=== PATIENT | male | born 1970 | race Caucasian/White ===

== ENCOUNTER 2017-01-24 20:20 | Inpatient (IN) ==
[2017-01-24] MEDS ORDERED: Ipratropium/Albuterol Neb 3 ML IH ONE ×2 (20:47→21:57)
[2017-01-24 21:14] LABS: Basophils % 0.2 %; Eosinophils % 0.1 %; Hematocrit 40.1 % (37.5-50.1); Hemoglobin 12.1 g/dL (12.9-16.9); Immature Granulocytes % 0.6 % (0-4); Lymphocytes # 1.3 K/mcL (0.6-4.6); Mean Corpuscular HGB Conc 30.2 g/dL (31.6-35.5); Mean Corpuscular Hemoglobin 26.2 pg (28.0-33.3); Mean Platelet Volume 10.7 fL (9.4-12.4); Monocytes # 0.6 K/mcL (0.0-1.3); Neutrophils # 12.6 K/mcL (1.6-8.9); Platelet Count 258 K/mcL (140-400); Red Blood Count 4.61 M/mcL (4.19-5.50); Red Cell Distribution Width 13.7 % (11.5-14.5); Segmented Neutrophils % 86.1 %
--- NOTE | 2017-01-24 21:18 | Emergency Department Note ---
Disposition Clinical Impression: Dyspnea, Acute and chronic respiratory failure, Hypercarbia Disposition: Admitted As Inpatient Condition: Fair Referrals: Severiano Thomas MD [Primary Care Provider] - Forms: ED Satisfaction Letter Time of Disposition: 22:44 General Adult HPI - General Chief complaint: ED Shortness of Breath/Dyspnea Stated complaint: states chest congestion,sob Time Seen by Provider: 01/24/17 20:31 Source: patient Limitations: no limitations Nursing Notes Reviewed: Yes Vital Signs Reviewed: Yes - History of Present Illness HPI Narrative: Mr. Padron, 38-year-old male, presents from urgent care for dilation of dyspnea. Onset has been progressive throughout the day. Patient has chronic respiratory failure requiring 3 L oxygen nasal cannula at baseline while sedentary and 6 L with movement. He does have home nebulizers which she did not use today. He is followed by his quantometer operator, Dr. Ribeiro, he saw 2 days ago and was diagnosed with either bronchitis or Tita cart pneumonia; unknown to the patient. He was provided an antibiotic as well as a steroid. Additionally, patient has sleep apnea with BiPAP for which he is not compliant. ROS: Positive: Dyspnea, wheeze Negative: Chest pains, palpitations, nausea, vomiting, diaphoresis, unusual cough, fever, chills, myalgias, constipation, diarrhea Pain Scale: 4 - Related Data Home Medications Medication Instructions Recorded Confirmed Albuterol Neb IH QID 04/19/15 Budesonide/Formoterol 160/4.5 IH DAILY 04/19/15 [Symbicort 160/4.5] Citalopram [CeleXA] 20 mg PO DAILY 04/19/15 04/19/15 Gabapentin 600 mg PO TID 04/19/15 04/19/15 Lisinopril [Zestril] 10 mg PO DAILY 04/19/15 04/19/15 Metformin 1,000 mg PO DAILY 04/19/15 04/19/15 Montelukast [Singulair] 10 mg PO DAILY 04/19/15 04/19/15 [place] 10-325 mg 10 - 325 mg PO QID 04/19/15 04/19/15 Previous Rx's Medication Instructions Recorded Acetaminophen [Tylenol] 325 mg PO Q6HR PRN #10 tablet 08/10/15 Albuterol Neb [Proventil Neb] 2.5 mg IH QID 2 Days inhsol 08/10/15 Albuterol Sulfate [Albuterol 2 puff IH QID 2 Days inhaler 08/10/15 Inhaler] Doxycycline 100 mg PO BID 7 Days capsule 08/10/15 predniSONE [PredniSONE] 5 mg PO DAILY 6 Days tablet 08/10/15 Allergies Allergy/AdvReac Type Severity Reaction Status Date / Time Latex, Natural Rubber Allergy Hives Verified 01/24/17 18:52 guaifenesin [From Robitussin] AdvReac Hives Verified 01/24/17 18:52 All systems ED: reviewed and negative except as stated. Review of Systems: As Per HPI Past Medical History - Past Medical History Attestation: Yes The following information was validated with the patient. Medical history: Reports: COPD, diabetes, hypertension Psychiatric history: Reports: anxiety, depression - Social History Smoking Status: Never smoker Smokeless Tobacco Status: No Alcohol use: Reports: none Drug use: Reports: none Physical Exam Vital Signs Reviewed General: Patient is alert, oriented, and in no acute distress. HEENT: No facial asymmetry. Head is normocephalic and atraumatic. PERRLA, EOMI. because of moist. Trachea midline. Cardiovascular: Heart regular rate and rhythm without clicks, rubs, gallops, or murmurs. No JVD. PMI nondisplaced. Respiratory: Symmetric chest rise with good respiratory effort. Prolonged respiratory phase. Bilateral breath sounds are diminished with scattered wheeze ; no crackles or rhonchi. Abdomen: Bees. Bowel sounds present normoactive x-4 quadrants. Abdomen is soft , nondistended, and nontender. Musculoskeletal: Spontaneously moving all extremities. Neuro: Alert and oriented 4. Skin: Warm, dry, intact. Psych: Patient's affect is appropriate for situation. - General Limitations: no limitations General appearance: alert, in no apparent distress Course Course Narrative: Patient is stable and oxygenating well on his baseline 3 L nasal cannula. Provide breathing treatments as well as chest x-ray, EKG, and laboratory workup. Subjectively, patient feels as though he is breathing better after the nebulizer. Attempted to find the patient in eCW to determine his diagnosis from this past . He was not found by patient look up. Patient CO2 on VBG is elevated at 81. He is mentating at his baseline per his at bedside. Clinically, he is not appears to be altered. Patient does have BiPAP at home. I discussed in detail the reason BiPAP is important both to maintain his airway from a pressure and soft tissue perspective as well as to support his lungs from a pulmonary cardiac perspective. We discussed the relationship between instrument repair technician heart attacks and REM sleep versus sleep apnea. Patient apparently does not wear his BiPAP because he does not like the sounds of air leaking beyond the mask. EKG is unremarkable. Troponin is within normal limits. Chest x-ray unremarkable. Because patient has a known history noncompliance, he is hypercarbic, and has acute on chronic respiratory failure, will admit to hospital service for continued management. Patient and are agreeable to this plan of care. I discussed the patient with the admitting hospitalist, Dr. Hills, who agrees to accept the patient for continued evaluation and management. Chest X-Ray 01/24/17 20:47 IMPRESSION: No acute abnormality D/ / Ellis Castro / Ellis Castro Interpreting Provider: Ellis Castro Vital Signs Temperature 98.9 F 01/24/17 20:22 Pulse Rate 102 01/24/17 20:22 Respiratory Rate 22 01/24/17 20:22 Blood Pressure 159/89 01/24/17 20:22 O2 Sat by Pulse Oximetry 95 01/24/17 20:22 Temperature 98.9 F 01/24/17 20:31 Pulse Rate 88 01/24/17 22:00 Respiratory Rate 18 01/24/17 22:08 Blood Pressure 133/77 01/24/17 22:00 O2 Sat by Pulse Oximetry 94 01/24/17 22:08 Oxygen Delivery Oxygen Delivery Nasal Cannula Medical Decision Making - Lab Data Result diagrams: 01/24/17 21:06 01/24/17 21:06 Lab Results 01/24/17 01/24/17 01/24/17 Range/Units 21:06 21:06 21:06 WBC 14.6 H (4.3-11.1) K/mcL RBC 4.61 (4.19-5.50) M/mcL Hgb 12.1 L (12.9-16.9) g/dL Hct 40.1 (37.5-50.1) % MCV 87.0 (83.0-100.0) fL MCH 26.2 L (28.0-33.3) pg MCHC 30.2 L (31.6-35.5) g/dL RDW 13.7 (11.5-14.5) % Plt Count 258 (140-400) K/mcL MPV 10.7 (9.4-12.4) fL Immature Gran % 0.6 (0-4) % Seg Neutrophils % 86.1 % Lymphocytes % 9.0 % Monocytes % 4.0 % Eosinophils % 0.1 % Basophils % 0.2 % Neutrophils # 12.6 H (1.6-8.9) K/mcL Lymphocytes # 1.3 (0.6-4.6) K/mcL Monocytes # 0.6 (0.0-1.3) K/mcL Eosinophils # 0.0 (0.0-0.6) K/mcL Basophils # 0.0 (0.0-0.2) K/mcL VBG pH (7.32-7.42) pH Units VBG pCO2 (41-51) mmHg VBG pO2 (25-50) mmHg VBG HCO3 (21-27) mEq/L Sodium 140 (136-145) mEq/L Potassium 5.0 H (3.5-4.5) mEq/L Chloride 92 L (98-109) mEq/L Carbon Dioxide 38 H (19-29) mEq/L BUN 18 (8-26) mg/dL Creatinine 0.75 (0.72-1.25) mg/dL Est GFR ( Amer) > 60 (> 60) Est GFR (Non-Af Amer) > 60 (> 60) BUN/Creatinine Ratio 24 (6-26) Glucose 190 H (70-99) mg/dL Calculated Osmolality 297 (280-300) Calcium 9.6 (8.6-10.8) mg/dL Troponin I 0.01 (0-0.03) ng/mL 01/24/17 Range/Units 21:17 WBC (4.3-11.1) K/mcL RBC (4.19-5.50) M/mcL Hgb (12.9-16.9) g/dL Hct (37.5-50.1) % MCV (83.0-100.0) fL MCH (28.0-33.3) pg MCHC (31.6-35.5) g/dL RDW (11.5-14.5) % Plt Count (140-400) K/mcL MPV (9.4-12.4) fL Immature Gran % (0-4) % Seg Neutrophils % % Lymphocytes % % Monocytes % % Eosinophils % % Basophils % % Neutrophils # (1.6-8.9) K/mcL Lymphocytes # (0.6-4.6) K/mcL Monocytes # (0.0-1.3) K/mcL Eosinophils # (0.0-0.6) K/mcL Basophils # (0.0-0.2) K/mcL VBG pH 7.31 L (7.32-7.42) pH Units VBG pCO2 81 H* (41-51) mmHg VBG pO2 43 (25-50) mmHg VBG HCO3 41 H (21-27) mEq/L Sodium (136-145) mEq/L Potassium (3.5-4.5) mEq/L Chloride (98-109) mEq/L Carbon Dioxide (19-29) mEq/L BUN (8-26) mg/dL Creatinine (0.72-1.25) mg/dL Est GFR ( Amer) (> 60) Est GFR (Non-Af Amer) (> 60) BUN/Creatinine Ratio (6-26) Glucose (70-99) mg/dL Calculated Osmolality (280-300) Calcium (8.6-10.8) mg/dL Troponin I (0-0.03) ng/mL - EKG Data EKG #1 EKG attestation: Yes I reviewed and interpreted this EKG. EKG results narrative: sinus rhythm with sinus arrhythmia. Rate of 91. Electrical indices within normal limits. Electrical axis is normal. No acute ST or T-wave abnormality appreciated. EKG shows normal: sinus rhythm Rate: normal Rhythm: NSR [place]/QRS: normal Attestation Statement - Attestation Attestation: I examined this patient and my medical decision-making was reviewed with the Resident Physician. I agree with the documented findings, disposition and treatment plan as described except to the extent set forth below. 46-year-old male presents to the because of difficulty in breathing and coughing. Symptoms have been evolving for the past several days. He was recently seen by his quantometer operator and diagnosed with a bronchial infection and started on antibiotics. He has not been using his home nebulizers as prescribed and has not been using is on BiPAP (for sleep apnea) as prescribed. Cough has been productive of thin yellow sputum. Denies fevers, chills or rigors. No chest pain. No change in the chronic lower extremity swelling. Morbidly obese male, slightly tachypneic. Oropharynx is clear extremities warm is moist. Neck is supple. Chest his breath sounds throughout with scattered expiratory wheezes. No focal consolidation. Cardiac exam distant heart tones, regular. Abdomen soft, nondistended, morbidly obese, nontender. Extremities with bilateral 1+ edema. EKG with no acute modalities Chest x-ray with no focal motor Venous blood gas with pH 7.31 PCO2 of 81 consistent with worsening of his chronic respiratory failure. This is likely on the basis of combined obesity hypoventilation syndrome as well as pulmonary hypertension. He received sequential DuoNeb treatments with some improvement. Compliance is the major issue for him and will likely be the source of his demise. He will be continued on bronchodilator therapy and admitted to the hospital The high probability of a clinically significant, sudden or life threatening deterioration of the [cardiopulmonary] system(s) required my full and direct attention, intervention and personal management. The aggregate critical care time was [32] minutes. This time is in addition to time spent performing reported procedures but includes the following: [x] Data Review and interpretation [x] Patient assessment and monitoring of vital signs [x] Documentation [x] Medication orders and management
[2017-01-24 21:20] LABS: VBG HCO3 41 mEq/L (21-27); VBG PCO2 81 mmHg (41-51); VBG PH 7.31 pH Units (7.32-7.42); VBG PO2 43 mmHg (25-50)
[2017-01-24 21:27] LABS: BUN/Creatinine Ratio 24 (6-26); Blood Urea Nitrogen 18 mg/dL (8-26); Calcium 9.6 mg/dL (8.6-10.8); Carbon Dioxide 38 mEq/L (19-29); Chloride 92 mEq/L (98-109); Glucose 190 mg/dL (70-99); Osmolality,Calculated 297 (280-300); Sodium 140 mEq/L (136-145); eGFR For African Americans > 60 (> 60); eGFR For Non-African Americans > 60 (> 60)
[2017-01-24] MEDS ORDERED: methylPREDNISolone 125 MG/2 ML VIAL IVP ONE (22:43)
[2017-01-25] MEDS ORDERED: Ondansetron 4 MG/2 ML VIAL IVP PRN (00:18)
[2017-01-25] MEDS ORDERED: Nitroglycerin 0.4 MG TAB.SUBL SL PRN (00:18)
[2017-01-25] MEDS ORDERED: Albuterol 2.5 MG/3 ML NEBULIZER IH PRN (00:18)
[2017-01-25] MEDS ORDERED: Dextrose Gel 15 GM PO PRN ×4 (00:21→00:31)
[2017-01-25] MEDS ORDERED: D5% in Water 1,000 ML IVC PRN ×2 (00:21→00:31)
[2017-01-25] MEDS ORDERED: *HR* Dextrose 50 % in Water (Syg) 50 ML SYRINGE IVP PRN ×2 (00:21→00:31)
[2017-01-25] MEDS ORDERED: Acetaminophen 325 MG TABLET PO PRN (00:22)
[2017-01-25] MEDS ORDERED: Naloxone 0.4 MG/ML INJ IVP PRN (00:22)
--- NOTE | 2017-01-25 00:39 | Internal Med History&Physical ---
Date of Encounter: 01/25/17 Time of Encounter: 00:36 Assessment and Plan (1) Acute and chronic respiratory failure Current visit: Yes Status: Acute VBC showed hypoxemia and hypercapnia. Patient failed out patient treatment. Start IV Doxy, IV solumederol, Duonebs, May do ABG as needed Qualifiers: Respiratory failure complication: hypoxia and hypercapnia Qualified Code(s) : J96.21 - Acute and chronic respiratory failure with hypoxia; J96.22 - Acute and chronic respiratory failure with hypercapnia; J96.22 - Acute and chronic respiratory failure with hypercapnia; J96.22 - Acute and chronic respiratory failure with hypercapnia (2) COPD exacerbation Current visit: Yes Status: Acute as above, CXR neg for Pna (3) Diabetes 1.5, managed as type 2 Current visit: Yes Status: Acute ACHS/ SSI/ Internal Medicine - H&P: HPI Chief complaint: Dyspnea Admitted From: Home Plans for Post Hospital Care: Home History of present illness: Mr. Padron is a 46 year old male who is morbidly obese and home O2 dependent presented with dyspnea and cough. His VBG in ER showed Hypoxemia and Hypercapnia with respiratory acidosis and hyperkalemia on BMP. Patient has been given breathing treatment and on Bipap and feels better. Patient has pmhx significant for DM, HTN and COPD. His distillation operator Dr Tilley tried him on out patient treatment but he failed. No other complained. No chest pain. Past Med Surg Social Fam HX - Past Medical History Medical history: COPD, diabetes, hypertension Psychiatric history: anxiety, depression - Social History Smoking Status: Never smoker Smokeless Tobacco Status: No Alcohol use: none Drug use: none - Family History Father Adopted: No Family Member Ethnicity: Non- Living Status: Still Living Hx Family Cardiac Disorders: No Hx Family Respiratory Disorders: Yes (COPD) Hx Family Cancer: No Hx Family GI Disorders: No Hx Family Endocrine Disorder: Yes (DM) Hx Family Neuromuscular Disorders: No Hx Family Neurologic Disorders: No Hx Family HEENT Disorders: Yes (cyst in eye) Hx Family Autoimmune Disorders: No Internal Medicine - H&P: Meds Albuterol Neb IH QID 04/19/15 [History] Citalopram [CeleXA] 20 mg PO DAILY 04/19/15 [History] Gabapentin 600 mg PO TID 04/19/15 [History] Lisinopril [Zestril] 10 mg PO DAILY 04/19/15 [History] Metformin 1,000 mg PO DAILY 04/19/15 [History] Montelukast [Singulair] 10 mg PO DAILY 04/19/15 [History] [place] 10-325 mg 10 - 325 mg PO QID 04/19/15 [History] Albuterol Neb [Proventil Neb] 2.5 mg IH QID 2 Days inhsol 08/10/15 [Rx] Albuterol Sulfate [Albuterol Inhaler] 2 puff IH QID 2 Days inhaler 08/10/15 [Rx ] Doxycycline 100 mg PO BID 7 Days capsule 08/10/15 [Rx] predniSONE [PredniSONE] 5 mg PO DAILY 6 Days tablet 08/10/15 [Rx] 3 Allergy/AdvReac Type Severity Reaction Status Date / Time Latex, Natural Rubber Allergy Hives Verified 01/24/17 18:52 guaifenesin [From Robitussin] AdvReac Hives Verified 01/24/17 18:52 All Systems PM: A 10-system review of systems was performed and is negative for pertinent findings except as documented above in the HPI. - Constitutional Constitutional: no chills, no fever(s), no night sweats - EENT Eyes: no change in vision, no discharge, no pain, no photophobia Ears: no ear discharge, no ear pain, no tinnitus Nose, mouth and throat: no dysphagia, no nasal discharge, no neck pain, no sore throat - Cardiovascular Cardiovascular ROS IM: no chest pain, no diaphoresis, no dyspnea, no lightheadedness, no palpitations, no syncope - Respiratory Respiratory: no cough, no dyspnea, no wheezing, no excessive phlegm production - Gastrointestinal Gastrointestinal: no abdominal pain, no diarrhea, no hematemesis, no hematochezia, no melena, no nausea, no vomiting - Musculoskeletal Musculoskeletal ROS IM: no numbness, no tingling - Integumentary Integumentary IM: no rash, no unusual bruising - Neurological Neurological ROS: no confusion, no convulsions, no focal weakness, no numbness, no tingling, no tremor(s) - Hematologic/Lymphatic Hematologic/Lymphatic: no easy bruising - Constitutional Vitals: Temp Pulse Resp BP Pulse Ox 98.4 F 79 18 146/82 97 01/24/17 23:50 01/24/17 23:50 01/24/17 23:50 01/24/17 23:50 01/24/17 23:50 - Head Head exam: Present: atraumatic, normocephalic - Eye Eye exam: Present: PERRL, conjuntiva pink, sclera anicteric Pupils: Present: PERRL - Neck Neck exam general surgery: Present: supple, trachea midline. Absent: lymphadenopathy - Respiratory Respiratory exam: Present: CTAB. Absent: accessory muscle use, rales, rhonchi, wheezes - Cardiovascular Cardiovascular exam: Present: RRR, +S1, +S2. Absent: diastolic murmur, gallop, rubs, systolic murmur - GI/Abdominal GI/Abdominal exam: Present: normal bowel sounds, soft, no peritoneal signs. Absent: distended, tenderness - Extremities Exam Extremities exam: Present: warm, radial pulses palpable and symmetrical. Absent : calf tenderness, cyanotic, pedal edema - Neurological Exam Neurological exam: Present: CN II-XII intact, oriented X3, no focal deficits. Absent: pronater drift, facial droop, speech deficit - Skin Skin exam: Present: dry, intact Internal Med - H&P Results - Labs CBC & Chem 7: 01/25/17 01:12 01/25/17 01:12
[2017-01-25 01:38] LABS: Basophils % 0.1 %; Hematocrit 38.9 % (37.5-50.1); Hemoglobin 11.9 g/dL (12.9-16.9); Immature Granulocytes % 0.8 % (0-4); Lymphocytes # 1.3 K/mcL (0.6-4.6); Lymphocytes % 8.9 %; Mean Corpuscular HGB Conc 30.6 g/dL (31.6-35.5); Mean Corpuscular Hemoglobin 26.6 pg (28.0-33.3); Mean Corpuscular Volume 86.8 fL (83.0-100.0); Mean Platelet Volume 10.9 fL (9.4-12.4); Monocytes # 0.3 K/mcL (0.0-1.3); Monocytes % 2.2 %; Neutrophils # 12.6 K/mcL (1.6-8.9); Platelet Count 254 K/mcL (140-400); Red Blood Count 4.48 M/mcL (4.19-5.50); Red Cell Distribution Width 13.6 % (11.5-14.5)
[2017-01-25 01:47] LABS: Hemoglobin A1C 5.8 %
[2017-01-25 01:53] LABS: Alanine Aminotransferase 32 Units/L (0-55); Albumin 3.5 g/dL (3.5-5.0); Albumin/Globulin Ratio 0.7 (1.1-2.2); Alkaline Phosphatase 65 Units/L (38-126); Aspartate Amino Transferase 21 Units/L (5-34); BUN/Creatinine Ratio 25 (6-26); Blood Urea Nitrogen 18 mg/dL (8-26); Calcium 9.8 mg/dL (8.6-10.8); Carbon Dioxide 37 mEq/L (19-29); Chloride 94 mEq/L (98-109); Globulin 4.7 g/dL (2.4-3.5); Glucose 170 mg/dL (70-99); Osmolality,Calculated 294 (280-300); Total Protein 8.2 g/dL (6.0-8.3); eGFR For African Americans > 60 (> 60); eGFR For Non-African Americans > 60 (> 60)
[2017-01-25 01:56] LABS: Bilirubin,Total < 0.2 mg/dL (0.2-1.2)
[2017-01-25 01:57] LABS: Potassium 4.8 mEq/L (3.5-4.5); Sodium 139 mEq/L (136-145)
[2017-01-25] MEDS: Insulin LISPRO 300 UNITS/3 ML VIAL SQ SCH ×6 (02:06→20:55)
[2017-01-25] MEDS: Ipratropium/Albuterol Neb 3 ML IH SCH ×5 (04:10→22:25)
[2017-01-25] MEDS: *HR* Heparin 5,000 UNIT/ML VIAL SQ SCH ×2 (06:08→17:43)
[2017-01-25] MEDS: 0.9 % Sodium Chloride 1,000 ML IVC SCH ×2 (06:08→23:05)
[2017-01-25] MEDS: Doxycycline 100 MG in 0.9 % Sodium Chloride Mini Bag 100 ML IVPB SCH ×2 (06:09→17:43)
[2017-01-25] MEDS: methylPREDNISolone 125 MG/2 ML VIAL IVP SCH ×3 (08:13→23:04)
[2017-01-25] MEDS: *HR* HYDROcodone/Acet 5/325 mg TABLET PO PRN ×2 (11:09→21:22)
--- NOTE | 2017-01-25 12:15 | Event Note ---
Date of Encounter: 01/25/17 Time of Encounter: 12:11 Mr. Padron is a 46 year old male who is morbidly obese and home O2 dependent presented with dyspnea and cough. His VBG in ER showed Hypoxemia and Hypercapnia with respiratory acidosis and hyperkalemia on BMP. Patient has been given breathing treatment and on Bipap and feels better. Patient has pmhx significant for DM, HTN and COPD. His supervisor bridges and buildings Dr Tilley tried him on out patient treatment but he failed. No other complained. No chest pain. VBG showed hypoxemia and hypercapnia. He is failed outpatient therapy. Antibiotics and oral prednisone. VS reviewed. Patient hypertensive with normal HR. Labs: reviewed: has elevated wbc at 14k, CO2 37, retairner. CXR showed no acute process. Troponin negative x1. Physical exam is remarkable for a morbidly obese male. He is in no acute distress on 4 L of O2. Lung auscultation limited to his body habitus, sounds are deminished at bases. Poor aeration of the lungs, No wheezing appreciated. There is trace bipedal pitting edema. Continue Solu-Medrol, doxycycline, DuoNeb's. BiPAP at night.
[2017-01-26] MEDS: Ipratropium/Albuterol Neb 3 ML IH SCH ×2 (04:17→10:32)
[2017-01-26] MEDS: *HR* Heparin 5,000 UNIT/ML VIAL SQ SCH (05:51)
[2017-01-26] MEDS: Doxycycline 100 MG in 0.9 % Sodium Chloride Mini Bag 100 ML IVPB SCH (05:51)
[2017-01-26 06:02] LABS: Basophils % 0.1 %; Hematocrit 38.1 % (37.5-50.1); Hemoglobin 11.8 g/dL (12.9-16.9); Immature Granulocytes % 1.2 % (0-4); Lymphocytes # 1.5 K/mcL (0.6-4.6); Lymphocytes % 9.1 %; Mean Corpuscular Hemoglobin 26.3 pg (28.0-33.3); Mean Corpuscular Volume 84.9 fL (83.0-100.0); Monocytes # 0.6 K/mcL (0.0-1.3); Monocytes % 3.9 %; Platelet Count 257 K/mcL (140-400); Red Blood Count 4.49 M/mcL (4.19-5.50); Red Cell Distribution Width 13.8 % (11.5-14.5); Segmented Neutrophils % 85.7 %
[2017-01-26 06:20] LABS: BUN/Creatinine Ratio 30 (6-26); Blood Urea Nitrogen 20 mg/dL (8-26); Carbon Dioxide 32 mEq/L (19-29); Chloride 96 mEq/L (98-109); Glucose 194 mg/dL (70-99); Osmolality,Calculated 296 (280-300); Potassium 4.5 mEq/L (3.5-4.5); Sodium 139 mEq/L (136-145); eGFR For African Americans > 60 (> 60); eGFR For Non-African Americans > 60 (> 60)
[2017-01-26] MEDS: Insulin LISPRO 300 UNITS/3 ML VIAL SQ SCH ×2 (08:27→11:38)
[2017-01-26] MEDS: methylPREDNISolone 125 MG/2 ML VIAL IVP SCH (08:27)
--- NOTE | 2017-01-26 10:55 | Discharge Summary ---
Date of Encounter: 01/26/17 Time of Encounter: 10:51 - Discharge Diagnosis (1) Acute and chronic respiratory failure Priority: Primary Status: Acute Qualifiers: Respiratory failure complication: hypercapnia Qualified Code(s): J96.22 - Acute and chronic respiratory failure with hypercapnia (2) COPD exacerbation Priority: Secondary Status: Acute (3) Diabetes 1.5, managed as type 2 Priority: Secondary Status: Acute - Discharge Medications Home Medications: Albuterol Neb [Proventil Neb] 2.5 mg IH Q4HR PRN 04/19/15 [History] Citalopram [CeleXA] 20 mg PO DAILY 04/19/15 [History] Gabapentin [Neurontin] 600 mg PO TID 04/19/15 [History] HYDROcodone/Acet 10/325 mg [[place] 10-325 mg] 1 tab PO Q6HR PRN 04/19/15 [History ] Lisinopril [Zestril] 10 mg PO DAILY 04/19/15 [History] Metformin HCl [Metformin HCl ER] 2,000 mg PO QPM 04/19/15 [History] Montelukast [Singulair] 10 mg PO DAILY 04/19/15 [History] Albuterol Sulfate [Albuterol Inhaler] 2 puff IH QID PRN 01/25/17 [History] Umeclidinium Brm/Vilanterol Tr [Anoro Ellipta 62.5-25 Mcg INH] 1 puff IH DAILY 01/25/17 [History] Doxycycline 100 mg PO BID #14 capsule 01/26/17 [Rx] predniSONE [PredniSONE] See [place]aper PO DAILY #52 tablet 01/26/17 [Rx] Allergies/Adverse Reactions: 3 Allergy/AdvReac Type Severity Reaction Status Date / Time guaifenesin [From Robitussin] Allergy Hives Verified 01/25/17 12:22 Latex, Natural Rubber Allergy Hives Verified 01/24/17 18:52 Date of admission: 01/25/17 00:22 Primary care physician: Severiano Thomas MD Discharging clinician: Dodie Fitzpatrick - Patient Status Disposition: Home, Self-Care Condition: Fair Functional capacity at discharge: independent ambulation Overall status at discharge: patient is progressing back to baseline - Discharge Instructions Follow Up With: Severiano Thomas MD [Primary Care Provider] - - Diet and Activity Activity: increase activity as tolerated Diet: diabetic diet, low salt diet Hospital course: Mr. Padron is a 46 year old male who is morbidly obese and home O2 dependent presented with dyspnea and cough. His VBG in ER showed Hypoxemia and Hypercapnia with respiratory acidosis and hyperkalemia on BMP. Patient has been given breathing treatment and on Bipap and feels better. Patient has pmhx significant for DM, HTN and COPD. His book critic Dr Tilley tried him on out patient treatment but he failed. A VBG showed hypercapnia, respiratory acidosis , hyperkalemia on labs. The elevated white count of 14, CO2 was 37 years and he is a retainer. He was started on BiPAP in the ED and he was feeling better. He is admitted for COPD exacerbation, located by obesity hypoventilation syndrome. Started on IV Solu-Medrol and IV doxycycline, and DuoNeb scheduled. After about 48 hours the patient as he is at his baseline breathing. He was discharged in stable condition he will be discharged with a 16 day severity, and doxycycline for 7 days of therapy. - Time Spent with Patient Total time spent providing and/or coordinating discharge services: - Constitutional Vitals: Temp Pulse Resp BP Pulse Ox 97.7 F 75 16 150/82 96 01/26/17 07:47 01/26/17 07:47 01/26/17 07:47 01/26/17 07:47 01/26/17 08:35 Exam: Gen.: No acute distress Cardio: Regular rhythm Lungs: Clear to auscultation bilaterally, no longer any wheezing on my exam, better air exchange since yesterday. Extremities, no edema - VTE Documentation of Mechanical Device: Graduated compression elastic hosiery
[2017-01-26] MEDS: *HR* HYDROcodone/Acet 5/325 mg TABLET PO PRN (11:16)
[2017-01-26 11:37] VITALS: BP 161/88
[2017-01-27 15:01] LABS: Procalcitonin <0.07 ng/mL (<=0.10)
[2017-01-28 15:42] LABS: Mycoplasma pneumoniae IgG 0.23 U/L (<=0.09)
== END 2017-01-26 16:11 | disposition home or self-care (01) | DRG 190 ==
LOC: 3BNU 20:20 → EMEROO 20:20 → 3BNU 23:37 → SUATTDRO 01-25 00:22
PROVIDERS: ADMIT Family Medicine; ATTEND Student in an Organized Health Care Education/Training Program

== ENCOUNTER 2019-01-03 02:02 | Observation (INO) ==
[2019-01-03] MEDS ORDERED: Ipratropium/Albuterol Neb 3 ML IH ONE (02:38)
[2019-01-03] MEDS ORDERED: methylPREDNISolone 125 MG/2 ML VIAL IVP ONE (03:27)
[2019-01-03] MEDS ORDERED: cefTRIAXone 1,000 MG in Water for inj. (sterile) 10 ML IVP STA (03:28)
[2019-01-03 03:48] LABS: Basophils % 0.2 %; Eosinophils # 0.1 K/mcL (0.0-0.6); Eosinophils % 1.1 %; Hematocrit 39.6 % (37.5-50.1); Hemoglobin 11.7 g/dL (12.9-16.9); Immature Granulocytes % 0.5 % (0-4); Lymphocytes # 1.7 K/mcL (0.6-4.6); Lymphocytes % 14.1 %; Mean Corpuscular HGB Conc 29.5 g/dL (31.6-35.5); Mean Corpuscular Hemoglobin 25.9 pg (28.0-33.3); Mean Corpuscular Volume 87.8 fL (83.0-100.0); Mean Platelet Volume 10.3 fL (9.4-12.4); Monocytes # 0.8 K/mcL (0.0-1.3); Monocytes % 6.4 %; Neutrophils # 9.5 K/mcL (1.6-8.9); Platelet Count 259 K/mcL (140-400); Red Blood Count 4.51 M/mcL (4.19-5.50); Red Cell Distribution Width 13.3 % (11.5-14.5); Segmented Neutrophils % 77.7 %; White Blood Count 12.2 K/mcL (4.3-11.1)
[2019-01-03 03:54] LABS: VBG HCO3 52 mEq/L (21-27); VBG PCO2 86 mmHg (41-51); VBG PH 7.39 pH Units (7.32-7.42); VBG PO2 45 mmHg (25-50)
[2019-01-03 03:54] LABS: Bilirubin,Urine Negative (Negative); Blood,Urine Negative (Negative); Clarity,Urine Clear (Clear); Color,Urine Yellow (Yellow); Glucose,Urine (UA) Normal (Normal); Ketones,Urine Negative (Negative); Leukocyte Esterase,Urine Negative (Negative); Nitrite,Urine Negative (Negative); Protein,Urine Negative (Neg-Trace); Specific Gravity,Urine 1.026 (1.010-1.025); Urobilinogen,Urine Normal (Normal)
[2019-01-03 04:17] LABS: BUN/Creatinine Ratio 37 (6-26); Blood Urea Nitrogen 17 mg/dL (6-20); Calcium 9.7 mg/dL (8.6-10.3); Carbon Dioxide 45 mEq/L (23-29); Chloride 86 mEq/L (98-107); Glucose 137 mg/dL (70-105); Osmolality,Calculated 292 (280-300); Potassium 5.3 mEq/L (3.5-5.1); Sodium 139 mEq/L (136-145); Troponin I < 0.03 ng/mL (< 0.04); eGFR For African Americans > 60 (> 60); eGFR For Non-African Americans > 60 (> 60)
[2019-01-03] MEDS: MethylPREDNISolone 40 MG/ML VIAL IVP SCH ×2 (08:20→20:55)
[2019-01-03] MEDS: Azithromycin 500 MG in 0.9 % Sodium Chloride 250 ML IVPB SCH (08:20)
[2019-01-03] MEDS: Ipratropium/Albuterol Neb 3 ML IH SCH ×3 (10:18→22:43)
[2019-01-03 11:38] LABS: Adenovirus Not Detected (Not Detect); Bordetella Pertussis Not Detected (Not Detect); Chlamydophila pneumoniae Not Detected (Not Detect); Coronavirus 229E Not Detected (Not Detect); Coronavirus HKU1 Not Detected (Not Detect); Coronavirus NL63 Not Detected (Not Detect); Coronavirus OC43 Not Detected (Not Detect); Human Metapneumovirus Not Detected (Not Detect); Human Rhinovirus/Enterovirus DETECTED (Not Detect); Influenza A Subtype 2009 H1 Not Detected (Not Detect); Influenza A Untypeable Not Detected (Not Detect); Influenza B Not Detected (Not Detect); Mycoplasma pneumoniae Not Detected (Not Detect); Parainfluenza Virus 1 Not Detected (Not Detect); Parainfluenza Virus 2 Not Detected (Not Detect); Parainfluenza Virus 3 Not Detected (Not Detect); Parainfluenza Virus 4 Not Detected (Not Detect); Respiratory Syncytial Virus Not Detected (Not Detect)
[2019-01-03 11:41] LABS: ABG Base Excess 23 mEq/L (-2 to 3); ABG HCO3 53 mEq/L (21-27); ABG Oxygen Saturation 94 % (95-98); ABG PCO2 86 mmHg (35-45); ABG PO2 75 mmHg (85-104); ABG TCO2 > 50 mEq/L (20-26)
[2019-01-03] MEDS: *HR* Heparin 5,000 UNIT/ML VIAL SQ SCH (16:38)
[2019-01-04] MEDS: Ipratropium/Albuterol Neb 3 ML IH SCH ×3 (04:00→15:31)
[2019-01-04] MEDS: *HR* Heparin 5,000 UNIT/ML VIAL SQ SCH ×2 (05:06→17:55)
[2019-01-04 05:14] LABS: VBG HCO3 44 mEq/L (21-27); VBG PCO2 70 mmHg (41-51); VBG PH 7.41 pH Units (7.32-7.42); VBG PO2 66 mmHg (25-50)
[2019-01-04 05:19] LABS: Basophils % 0.1 %; Hematocrit 42.3 % (37.5-50.1); Hemoglobin 12.7 g/dL (12.9-16.9); Immature Granulocytes % 0.4 % (0-4); Lymphocytes # 1.6 K/mcL (0.6-4.6); Lymphocytes % 11.9 %; Mean Corpuscular Hemoglobin 25.9 pg (28.0-33.3); Mean Corpuscular Volume 86.2 fL (83.0-100.0); Mean Platelet Volume 10.3 fL (9.4-12.4); Monocytes # 0.6 K/mcL (0.0-1.3); Monocytes % 4.2 %; Neutrophils # 11.3 K/mcL (1.6-8.9); Platelet Count 296 K/mcL (140-400); Red Blood Count 4.91 M/mcL (4.19-5.50); Red Cell Distribution Width 13.4 % (11.5-14.5); Segmented Neutrophils % 83.4 %; White Blood Count 13.6 K/mcL (4.3-11.1)
[2019-01-04 05:43] LABS: BUN/Creatinine Ratio 38 (6-26); Blood Urea Nitrogen 21 mg/dL (6-20); Calcium 9.9 mg/dL (8.6-10.3); Carbon Dioxide 40 mEq/L (23-29); Chloride 88 mEq/L (98-107); Glucose 173 mg/dL (70-105); Osmolality,Calculated 297 (280-300); Potassium 4.4 mEq/L (3.5-5.1); Sodium 140 mEq/L (136-145); eGFR For African Americans > 60 (> 60); eGFR For Non-African Americans > 60 (> 60)
[2019-01-04] MEDS ORDERED: Multivit/Ca/Min/Fe/FA 1 TAB TABLET PO SCH (09:00)
[2019-01-04] MEDS: MethylPREDNISolone 40 MG/ML VIAL IVP SCH (10:20)
[2019-01-04] MEDS: Azithromycin 500 MG in 0.9 % Sodium Chloride 250 ML IVPB SCH (10:20)
[2019-01-04 13:02] VITALS: BP 141/72
[2019-01-04] MEDS ORDERED: Albuterol 2.5 MG/3 ML NEBULIZER IH PRN (14:41)
[2019-01-04] MEDS ORDERED: *HR* Dextrose 50 % in Water (Syg) 50 ML SYRINGE IVP PRN (14:41)
[2019-01-04] MEDS ORDERED: D5% in Water 1,000 ML IVC PRN (14:41)
[2019-01-04] MEDS ORDERED: Dextrose Gel 15 GM/37.5 ML TUBE PO PRN ×2 (14:41)
[2019-01-04] MEDS ORDERED: Insulin LISPRO 300 UNITS/3 ML VIAL SQ SCH ×2 (16:30→21:00)
== END 2019-01-04 19:15 | disposition home or self-care (01) ==
LOC: EMEROOARM 02:02 → 3ANU 02:02 → SUATTDRO 04:54 → 3ANU 05:32
PROVIDERS: ADMIT Internal Medicine; ATTEND Internal Medicine

== ENCOUNTER 2019-11-02 22:42 | Inpatient (IN) ==
[2019-11-02 23:35] LABS: ABG Base Excess 23 mEq/L (-2 to 3); ABG HCO3 57 mEq/L (21-27); ABG Oxygen Saturation 93 % (95-98); ABG PCO2 135 mmHg (35-45); ABG PH 7.23 pH Units (7.32-7.45); ABG PO2 88 mmHg (85-104); ABG TCO2 > 50 mEq/L (20-26)
[2019-11-02] MEDS ORDERED: methylPREDNISolone 125 MG/2 ML VIAL IVP ONE (23:53)
[2019-11-03 00:20] LABS: Basophils % 0.3 %; Immature Granulocytes % 1.1 % (0-4); Nucleated Red Blood Cells 0.2 /100 WBC (0)
[2019-11-03 00:22] LABS: Eosinophils # 0.1 K/mcL (0.0-0.6); Eosinophils % 0.8 %; Hematocrit 36.4 % (37.5-50.1); Hemoglobin 9.9 g/dL (12.9-16.9); Lymphocytes # 1.3 K/mcL (0.6-4.6); Lymphocytes % 12.7 %; Mean Corpuscular HGB Conc 27.2 g/dL (31.6-35.5); Mean Corpuscular Hemoglobin 25.3 pg (28.0-33.3); Mean Corpuscular Volume 92.9 fL (83.0-100.0); Mean Platelet Volume 10.2 fL (9.4-12.4); Monocytes # 0.8 K/mcL (0.0-1.3); Monocytes % 7.2 %; Neutrophils # 8.2 K/mcL (1.6-8.9); Platelet Count 202 K/mcL (140-400); Red Blood Count 3.92 M/mcL (4.19-5.50); Red Cell Distribution Width 14.6 % (11.5-14.5); Segmented Neutrophils % 77.9 %; White Blood Count 10.5 K/mcL (4.3-11.1)
[2019-11-03 00:40] LABS: Hypochromasia Present (Not Present); Platelet Estimate Normal (Normal)
[2019-11-03 00:46] LABS: ABG Base Excess 23 mEq/L (-2 to 3); ABG HCO3 55 mEq/L (21-27); ABG Oxygen Saturation 92 % (95-98); ABG PCO2 111 mmHg (35-45); ABG PO2 79 mmHg (85-104); ABG TCO2 > 50 mEq/L (20-26); Blood Gas Modality avaps; Blood Gas VT 550 cc
[2019-11-03 01:12] LABS: Alanine Aminotransferase 20 Units/L (7-52); Albumin 3.5 g/dL (3.5-5.7); Albumin/Globulin Ratio 1.2 (1.1-2.2); Alkaline Phosphatase 48 Units/L (34-104); Aspartate Amino Transferase 16 Units/L (13-39); BUN/Creatinine Ratio 14 (6-26); Bilirubin,Direct 0.1 mg/dL (0.0-0.2); Bilirubin,Indirect 0.1 mg/dL (0.0-1.0); Bilirubin,Total 0.2 mg/dL (0.3-1.0); Blood Urea Nitrogen 7 mg/dL (6-20); Calcium 8.9 mg/dL (8.6-10.3); Carbon Dioxide > 45 mEq/L (23-29); Chloride 88 mEq/L (98-107); Glucose 143 mg/dL (70-105); Osmolality,Calculated 290 (280-300); Potassium 4.5 mEq/L (3.5-5.1); Sodium 140 mEq/L (136-145); Total Protein 6.5 g/dL (6.4-8.9); Troponin I < 0.03 ng/mL (< 0.04); eGFR For African Americans > 60 (> 60); eGFR For Non-African Americans > 60 (> 60)
[2019-11-03 03:05] LABS: Adenovirus Not Detected (Not Detect); Bordetella Pertussis Not Detected (Not Detect); Chlamydophila pneumoniae Not Detected (Not Detect); Coronavirus 229E Not Detected (Not Detect); Coronavirus HKU1 Not Detected (Not Detect); Coronavirus NL63 Not Detected (Not Detect); Coronavirus OC43 Not Detected (Not Detect); Human Metapneumovirus Not Detected (Not Detect); Human Rhinovirus/Enterovirus Not Detected (Not Detect); Influenza A Subtype 2009 H1 Not Detected (Not Detect); Influenza B Not Detected (Not Detect); Mycoplasma pneumoniae Not Detected (Not Detect); Parainfluenza Virus 1 Not Detected (Not Detect); Parainfluenza Virus 2 Not Detected (Not Detect); Parainfluenza Virus 3 Not Detected (Not Detect); Parainfluenza Virus 4 Not Detected (Not Detect); Respiratory Syncytial Virus Not Detected (Not Detect); SARS-CoV-2 Not Detected (Not Detect)
[2019-11-03] MEDS ORDERED: *HR* Promethazine 25 MG/ML VIAL IVP PRN (03:34)
[2019-11-03] MEDS ORDERED: Naloxone 0.4 MG/ML INJ IVP PRN (03:34)
[2019-11-03] MEDS ORDERED: Ipratropium/Albuterol Neb 3 ML IH PRN (04:00)
[2019-11-03] MEDS ORDERED: Benzonatate 100 MG CAPSULE PO PRN (04:01)
[2019-11-03] MEDS: *HR* Heparin 5,000 UNIT/ML VIAL SQ SCH ×2 (05:43→17:38)
[2019-11-03] MEDS: Ipratropium/Albuterol Neb 3 ML IH SCH ×4 (06:31→21:58)
[2019-11-03 06:58] LABS: ABG Base Excess > 30 mEq/L (-2 to 3); ABG HCO3 64 mEq/L (21-27); ABG Oxygen Saturation 93 % (95-98); ABG PCO2 118 mmHg (35-45); ABG PH 7.34 pH Units (7.32-7.45); ABG PO2 81 mmHg (85-104); ABG TCO2 > 50 mEq/L (20-26); Blood Gas VT 550 cc
[2019-11-03] MEDS ORDERED: acetaZOLAMIDE 250 MG in Water for inj. (sterile) 5 ML IVP ONE (07:40)
[2019-11-03] MEDS: MethylPREDNISolone 40 MG/ML VIAL IVP SCH (08:45)
[2019-11-03] MEDS: Insulin LISPRO 300 UNITS/3 ML VIAL SQ SCH ×3 (08:47→17:38)
[2019-11-03] MEDS: Doxycycline 100 MG CAPSULE PO SCH ×2 (08:47→19:43)
[2019-11-03 11:15] LABS: ABG Base Excess 20 mEq/L (-2 to 3); ABG HCO3 53 mEq/L (21-27); ABG Oxygen Saturation 95 % (95-98); ABG PCO2 113 mmHg (35-45); ABG PH 7.28 pH Units (7.32-7.45); ABG PO2 92 mmHg (85-104); ABG TCO2 > 50 mEq/L (20-26); Blood Gas Modality avaps; Blood Gas Pressure Support 35 cm H2O; Blood Gas VT 550 cc
[2019-11-03 14:42] LABS: ABG Base Excess 18 mEq/L (-2 to 3); ABG HCO3 49 mEq/L (21-27); ABG Oxygen Saturation 92 % (95-98); ABG PCO2 88 mmHg (35-45); ABG PH 7.35 pH Units (7.32-7.45); ABG PO2 72 mmHg (85-104); ABG TCO2 > 50 mEq/L (20-26); Blood Gas VT 600 cc
[2019-11-03 14:57] LABS: Amphetamine Screen,Urine Negative ng/mL (Cutoff=1000); Barbiturate Screen,Urine Negative ng/mL (Cutoff=200); Benzodiazepines Screen,Urine Negative ng/mL (Cutoff=200); Cannabinoid Screen,Urine Negative ng/mL (Cutoff = 50); Cocaine Screen,Urine Negative ng/mL (Cutoff= 300); Opiate Screen,Urine Positive ng/mL (Cutoff=300); Phencyclidine Screen,Urine Negative ng/mL (Cutoff=25)
[2019-11-03] MEDS ORDERED: *HR* HYDROcodone/Acet 10/325 mg TABLET PO PRN (17:15)
[2019-11-03] MEDS: Gabapentin 300 MG CAPSULE PO SCH (19:44)
[2019-11-03] MEDS: Insulin DETEMIR 100 UNIT/ML X5UNITS SQ SCH (21:53)
[2019-11-03] MEDS: Acetaminophen 325 MG TABLET PO PRN (23:08)
[2019-11-04] MEDS: Ipratropium/Albuterol Neb 3 ML IH SCH ×4 (03:07→22:32)
[2019-11-04 03:19] LABS: ABG Base Excess 18 mEq/L (-2 to 3); ABG HCO3 47 mEq/L (21-27); ABG Oxygen Saturation 96 % (95-98); ABG PCO2 84 mmHg (35-45); ABG PH 7.36 pH Units (7.32-7.45); ABG PO2 88 mmHg (85-104); ABG TCO2 50 mEq/L (20-26); Blood Gas Modality AVAPS; Blood Gas Pressure Support 6 cm H2O; Blood Gas VT 600 cc
[2019-11-04 05:06] LABS: Mean Platelet Volume 10.7 fL (9.4-12.4)
[2019-11-04 05:08] LABS: Hematocrit 37.6 % (37.5-50.1); Hemoglobin 10.7 g/dL (12.9-16.9); Mean Corpuscular HGB Conc 28.5 g/dL (31.6-35.5); Mean Corpuscular Hemoglobin 24.9 pg (28.0-33.3); Mean Corpuscular Volume 87.4 fL (83.0-100.0); Platelet Count 232 K/mcL (140-400); Red Cell Distribution Width 14.7 % (11.5-14.5)
[2019-11-04] MEDS: *HR* Heparin 5,000 UNIT/ML VIAL SQ SCH ×2 (05:16→17:21)
[2019-11-04 05:39] LABS: BUN/Creatinine Ratio 21 (6-26); Blood Urea Nitrogen 13 mg/dL (6-20); Calcium 9.3 mg/dL (8.6-10.3); Carbon Dioxide 44 mEq/L (23-29); Chloride 89 mEq/L (98-107); Glucose 131 mg/dL (70-105); Osmolality,Calculated 292 (280-300); Potassium 3.8 mEq/L (3.5-5.1); Sodium 140 mEq/L (136-145); eGFR For African Americans > 60 (> 60); eGFR For Non-African Americans > 60 (> 60)
[2019-11-04 05:45] LABS: % Iron Saturation 9 % (20-55); Ferritin 24 ng/mL (20-250); Iron 41 mcg/dL (65-175); Transferrin 325 mg/dL (203-362)
[2019-11-04] MEDS: Insulin LISPRO 300 UNITS/3 ML VIAL SQ SCH ×3 (08:22→16:17)
[2019-11-04] MEDS: lisinopriL 10 MG TABLET PO SCH (09:47)
[2019-11-04] MEDS: Gabapentin 300 MG CAPSULE PO SCH ×3 (09:47→21:15)
[2019-11-04] MEDS: *HR* SitaGLIPtin 25 MG TABLET PO SCH (09:47)
[2019-11-04] MEDS: MethylPREDNISolone 40 MG/ML VIAL IVP SCH (09:48)
[2019-11-04] MEDS: Cholecalciferol (D-3) 1,000 UNIT (25MCG) TABLET PO SCH (09:48)
[2019-11-04] MEDS: Doxycycline 100 MG CAPSULE PO SCH ×2 (09:48→21:15)
[2019-11-04 09:57] LABS: Bilirubin,Urine Negative (Negative); Blood,Urine Negative (Negative); Clarity,Urine Clear (Clear); Color,Urine Yellow (Yellow); Glucose,Urine (UA) Normal (Normal); Ketones,Urine Negative (Negative); Leukocyte Esterase,Urine Negative (Negative); Nitrite,Urine Negative (Negative); Protein,Urine Trace mg/dL (Neg-Trace); Specific Gravity,Urine 1.023 (1.010-1.025)
[2019-11-04] MEDS: Acetaminophen 325 MG TABLET PO PRN (16:16)
[2019-11-04] MEDS: Insulin DETEMIR 100 UNIT/ML X5UNITS SQ SCH (21:15)
[2019-11-05] MEDS: Acetaminophen 325 MG TABLET PO PRN (00:08)
[2019-11-05] MEDS: Ipratropium/Albuterol Neb 3 ML IH SCH ×4 (04:39→22:44)
[2019-11-05] MEDS: *HR* Heparin 5,000 UNIT/ML VIAL SQ SCH ×2 (05:41→17:03)
[2019-11-05 06:05] LABS: Hematocrit 34.8 % (37.5-50.1); Hemoglobin 10.1 g/dL (12.9-16.9); Mean Corpuscular Hemoglobin 24.5 pg (28.0-33.3); Mean Corpuscular Volume 84.3 fL (83.0-100.0); Mean Platelet Volume 10.4 fL (9.4-12.4); Platelet Count 225 K/mcL (140-400); Red Blood Count 4.13 M/mcL (4.19-5.50); Red Cell Distribution Width 14.7 % (11.5-14.5); White Blood Count 12.3 K/mcL (4.3-11.1)
[2019-11-05 06:10] LABS: VBG HCO3 39 mEq/L (21-27); VBG PCO2 44 mmHg (41-51); VBG PH 7.55 pH Units (7.32-7.42); VBG PO2 185 mmHg (25-50)
[2019-11-05 06:24] LABS: BUN/Creatinine Ratio 35 (6-26); Blood Urea Nitrogen 21 mg/dL (6-20); Calcium 9.2 mg/dL (8.6-10.3); Carbon Dioxide 39 mEq/L (23-29); Chloride 92 mEq/L (98-107); Glucose 144 mg/dL (70-105); Osmolality,Calculated 288 (280-300); Potassium 3.4 mEq/L (3.5-5.1); Sodium 136 mEq/L (136-145); eGFR For African Americans > 60 (> 60); eGFR For Non-African Americans > 60 (> 60)
[2019-11-05] MEDS ORDERED: Potassium Chloride Elixir 20 MEQ/15 ML UDC PO ONE ×2 (07:36→09:45)
[2019-11-05] MEDS: Insulin LISPRO 300 UNITS/3 ML VIAL SQ SCH ×3 (09:34→17:03)
[2019-11-05] MEDS: *HR* SitaGLIPtin 25 MG TABLET PO SCH (09:44)
[2019-11-05] MEDS: MethylPREDNISolone 40 MG/ML VIAL IVP SCH (09:44)
[2019-11-05] MEDS: Doxycycline 100 MG CAPSULE PO SCH ×2 (09:45→20:47)
[2019-11-05] MEDS: Piperacillin/Tazobactam 3.375 GM in 0.9 % Sodium Chloride Mini Bag 100 ML IVPB SCH ×2 (09:45→17:03)
[2019-11-05] MEDS: Gabapentin 300 MG CAPSULE PO SCH ×3 (09:45→20:47)
[2019-11-05] MEDS: Cholecalciferol (D-3) 1,000 UNIT (25MCG) TABLET PO SCH (09:45)
[2019-11-05] MEDS: lisinopriL 10 MG TABLET PO SCH (09:45)
[2019-11-05] MEDS: Insulin DETEMIR 100 UNIT/ML X5UNITS SQ SCH (20:47)
[2019-11-06] MEDS: Piperacillin/Tazobactam 3.375 GM in 0.9 % Sodium Chloride Mini Bag 100 ML IVPB SCH ×4 (01:09→23:40)
[2019-11-06] MEDS: Ipratropium/Albuterol Neb 3 ML IH SCH ×4 (03:56→22:37)
[2019-11-06 05:10] LABS: Hematocrit 36.3 % (37.5-50.1); Hemoglobin 10.6 g/dL (12.9-16.9); Mean Corpuscular HGB Conc 29.2 g/dL (31.6-35.5); Mean Corpuscular Hemoglobin 24.4 pg (28.0-33.3); Mean Corpuscular Volume 83.6 fL (83.0-100.0); Mean Platelet Volume 10.7 fL (9.4-12.4); Platelet Count 225 K/mcL (140-400); Red Blood Count 4.34 M/mcL (4.19-5.50); Red Cell Distribution Width 14.8 % (11.5-14.5); White Blood Count 13.4 K/mcL (4.3-11.1)
[2019-11-06] MEDS: *HR* Heparin 5,000 UNIT/ML VIAL SQ SCH ×2 (05:42→17:03)
[2019-11-06] MEDS: predniSONE 20 MG TABLET PO SCH (08:08)
[2019-11-06] MEDS: Gabapentin 300 MG CAPSULE PO SCH ×3 (08:08→21:38)
[2019-11-06] MEDS: *HR* SitaGLIPtin 25 MG TABLET PO SCH (08:08)
[2019-11-06] MEDS: Doxycycline 100 MG CAPSULE PO SCH ×2 (08:08→21:38)
[2019-11-06] MEDS: lisinopriL 10 MG TABLET PO SCH (08:08)
[2019-11-06] MEDS: Cholecalciferol (D-3) 1,000 UNIT (25MCG) TABLET PO SCH (08:08)
[2019-11-06] MEDS: Insulin LISPRO 300 UNITS/3 ML VIAL SQ SCH ×3 (08:14→17:03)
[2019-11-06 10:09] LABS: BUN/Creatinine Ratio 24 (6-26); Blood Urea Nitrogen 16 mg/dL (6-20); Calcium 9.2 mg/dL (8.6-10.3); Carbon Dioxide 38 mEq/L (23-29); Chloride 94 mEq/L (98-107); Glucose 166 mg/dL (70-105); Osmolality,Calculated 293 (280-300); Potassium 3.7 mEq/L (3.5-5.1); Sodium 139 mEq/L (136-145); eGFR For African Americans > 60 (> 60); eGFR For Non-African Americans > 60 (> 60)
[2019-11-06] MEDS: Insulin DETEMIR 100 UNIT/ML X5UNITS SQ SCH (21:39)
[2019-11-07] MEDS: Ipratropium/Albuterol Neb 3 ML IH SCH ×2 (03:28→10:35)
[2019-11-07] MEDS: *HR* Heparin 5,000 UNIT/ML VIAL SQ SCH (06:43)
[2019-11-07 07:19] VITALS: BP 132/84
[2019-11-07] MEDS: predniSONE 20 MG TABLET PO SCH (08:19)
[2019-11-07] MEDS: Gabapentin 300 MG CAPSULE PO SCH (08:19)
[2019-11-07] MEDS: Cholecalciferol (D-3) 1,000 UNIT (25MCG) TABLET PO SCH (08:19)
[2019-11-07] MEDS: Doxycycline 100 MG CAPSULE PO SCH (08:19)
[2019-11-07] MEDS: lisinopriL 10 MG TABLET PO SCH (08:19)
[2019-11-07] MEDS: Piperacillin/Tazobactam 3.375 GM in 0.9 % Sodium Chloride Mini Bag 100 ML IVPB SCH (08:20)
[2019-11-07] MEDS: Insulin LISPRO 300 UNITS/3 ML VIAL SQ SCH (08:21)
[2019-11-07] MEDS: *HR* SitaGLIPtin 25 MG TABLET PO SCH (08:23)
== END 2019-11-07 10:40 | disposition home or self-care (01) | DRG 189 ==
LOC: EMEROOARM 22:42 → 3ANU 22:42 → SUATTDRO 11-03 06:16
PROVIDERS: ADMIT Internal Medicine; ATTEND Internal Medicine

== ENCOUNTER 2019-11-29 20:31 | Inpatient (IN) ==
[2019-11-29 21:53] LABS: Alanine Aminotransferase 20 Units/L (7-52); Albumin 3.8 g/dL (3.5-5.7); Albumin/Globulin Ratio 1.2 (1.1-2.2); Alkaline Phosphatase 57 Units/L (34-104); Aspartate Amino Transferase 16 Units/L (13-39); BUN/Creatinine Ratio 19 (6-26); Bilirubin,Direct 0.1 mg/dL (0.0-0.2); Bilirubin,Indirect 0.2 mg/dL (0.0-1.0); Bilirubin,Total 0.3 mg/dL (0.3-1.0); Blood Urea Nitrogen 8 mg/dL (6-20); Calcium 9.1 mg/dL (8.6-10.3); Carbon Dioxide > 45 mEq/L (23-29); Chloride 85 mEq/L (98-107); Ethanol < 10 mg/dL (Less than 10); Globulin 3.3 g/dL (2.4-3.5); Glucose 155 mg/dL (70-105); Lipase 6 Units/L (11-82); Osmolality,Calculated 289 (280-300); Potassium 4.6 mEq/L (3.5-5.1); Sodium 139 mEq/L (136-145); Total Protein 7.1 g/dL (6.4-8.9); Troponin I < 0.03 ng/mL (< 0.04); eGFR For African Americans > 60 (> 60); eGFR For Non-African Americans > 60 (> 60)
[2019-11-29 21:55] LABS: ABG PCO2 > 150 mmHg (35-45); ABG PH 7.18 pH Units (7.32-7.45); ABG PO2 111 mmHg (85-104)
[2019-11-29 22:39] LABS: Hematocrit 39.7 % (37.5-50.1); Hemoglobin 10.4 g/dL (12.9-16.9); Mean Corpuscular HGB Conc 26.2 g/dL (31.6-35.5); Mean Corpuscular Hemoglobin 24.5 pg (28.0-33.3); Mean Corpuscular Volume 93.4 fL (83.0-100.0); Mean Platelet Volume 10.3 fL (9.4-12.4); Nucleated Red Blood Cells 0.5 /100 WBC (0); Platelet Count 234 K/mcL (140-400); Red Blood Count 4.25 M/mcL (4.19-5.50); Red Cell Distribution Width 14.8 % (11.5-14.5); White Blood Count 10.8 K/mcL (4.3-11.1)
[2019-11-29 22:42] LABS: Adenovirus Not Detected (Not Detect); Bordetella Pertussis Not Detected (Not Detect); Chlamydophila pneumoniae Not Detected (Not Detect); Coronavirus 229E Not Detected (Not Detect); Coronavirus HKU1 Not Detected (Not Detect); Coronavirus NL63 Not Detected (Not Detect); Coronavirus OC43 Not Detected (Not Detect); Human Metapneumovirus Not Detected (Not Detect); Human Rhinovirus/Enterovirus Not Detected (Not Detect); Influenza A Subtype 2009 H1 Not Detected (Not Detect); Influenza B Not Detected (Not Detect); Mycoplasma pneumoniae Not Detected (Not Detect); Parainfluenza Virus 1 Not Detected (Not Detect); Parainfluenza Virus 2 Not Detected (Not Detect); Parainfluenza Virus 3 Not Detected (Not Detect); Parainfluenza Virus 4 Not Detected (Not Detect); Respiratory Syncytial Virus Not Detected (Not Detect); SARS-CoV-2 Not Detected (Not Detect)
[2019-11-29 23:11] LABS: Lymphocytes # 0.7 K/mcL (0.6-4.6); Monocytes # 0.7 K/mcL (0.0-1.3); Neutrophils # 9.3 K/mcL (1.6-8.9)
[2019-11-29 23:13] LABS: Hypochromasia Present (Not Present); Microcytosis Present (Not Present); Platelet Estimate Normal (Normal)
[2019-11-30] MEDS ORDERED: Naloxone 0.4 MG/ML INJ IVP PRN (01:46)
[2019-11-30 06:27] LABS: ABG Base Excess > 30 mEq/L (-2 to 3); ABG HCO3 72 mEq/L (21-27); ABG Oxygen Saturation 92 % (95-98); ABG PCO2 109 mmHg (35-45); ABG PH 7.43 pH Units (7.32-7.45); ABG PO2 71 mmHg (85-104); ABG TCO2 > 50 mEq/L (20-26); Blood Gas VT 600 cc
[2019-11-30] MEDS ORDERED: Ondansetron 4 MG/2 ML VIAL IVP PRN (07:23)
[2019-11-30] MEDS ORDERED: Dextrose Gel 15 GM/37.5 ML TUBE PO PRN ×2 (07:26)
[2019-11-30] MEDS ORDERED: D5% in Water 1,000 ML IVC PRN (07:26)
[2019-11-30] MEDS ORDERED: *HR* Dextrose 50 % in Water (Vial) 50 ML VIAL IVP PRN (07:26)
[2019-11-30] MEDS ORDERED: Ipratropium/Albuterol Neb 3 ML ONE (07:33)
[2019-11-30 07:40] LABS: Mean Platelet Volume 10.5 fL (9.4-12.4)
[2019-11-30 07:41] LABS: Basophils % 0.3 %; Eosinophils # 0.1 K/mcL (0.0-0.6); Hematocrit 34.1 % (37.5-50.1); Hemoglobin 9.3 g/dL (12.9-16.9); Immature Granulocytes % 2.7 % (0-4); Lymphocytes # 1.4 K/mcL (0.6-4.6); Lymphocytes % 14.7 %; Mean Corpuscular HGB Conc 27.3 g/dL (31.6-35.5); Mean Corpuscular Hemoglobin 25.3 pg (28.0-33.3); Mean Corpuscular Volume 92.7 fL (83.0-100.0); Monocytes # 0.7 K/mcL (0.0-1.3); Monocytes % 7.8 %; Neutrophils # 6.8 K/mcL (1.6-8.9); Nucleated Red Blood Cells 0.3 /100 WBC (0); Platelet Count 216 K/mcL (140-400); Red Blood Count 3.68 M/mcL (4.19-5.50); Red Cell Distribution Width 14.8 % (11.5-14.5); Segmented Neutrophils % 73.5 %; White Blood Count 9.3 K/mcL (4.3-11.1)
[2019-11-30] MEDS: Ipratropium/Albuterol Neb 3 ML IH SCH ×4 (07:55→19:42)
[2019-11-30 08:06] LABS: Anisocytosis 1+ (Not Present); Platelet Estimate Normal (Normal); Stomatocytes 1+ (Not Present)
[2019-11-30 08:07] LABS: INR 1.2; Prothrombin Time 13.4 Seconds (9.4-12.1)
[2019-11-30 08:10] LABS: Activated Partial Thrombo Time 27.5 Seconds (26.0-36.0)
[2019-11-30 08:21] LABS: BUN/Creatinine Ratio 22 (6-26); Blood Urea Nitrogen 8 mg/dL (6-20); Calcium 9.2 mg/dL (8.6-10.3); Carbon Dioxide > 45 mEq/L (23-29); Chloride 86 mEq/L (98-107); Glucose 120 mg/dL (70-105); Magnesium 1.6 mg/dL (1.6-2.6); Osmolality,Calculated 290 (280-300); Phosphorous 1.9 mg/dL (2.7-4.5); Potassium 4.4 mEq/L (3.5-5.1); Sodium 140 mEq/L (136-145); eGFR For African Americans > 60 (> 60); eGFR For Non-African Americans > 60 (> 60)
[2019-11-30] MEDS ORDERED: Acetaminophen 325 MG TABLET PO PRN (08:53)
[2019-11-30] MEDS: levoFLOXacin 750 MG/150 ML 750 MG/150 ML BAG IVPB SCH (11:14)
[2019-11-30] MEDS: MethylPREDNISolone 40 MG/ML VIAL IVP SCH ×2 (11:14→17:32)
[2019-11-30 11:42] LABS: ABG Base Excess > 30 mEq/L (-2 to 3); ABG HCO3 65 mEq/L (21-27); ABG Oxygen Saturation 93 % (95-98); ABG PCO2 95 mmHg (35-45); ABG PH 7.45 pH Units (7.32-7.45); ABG PO2 71 mmHg (85-104); ABG TCO2 > 50 mEq/L (20-26)
[2019-11-30] MEDS: Insulin LISPRO 300 UNITS/3 ML VIAL SQ SCH ×2 (12:21→17:56)
[2019-11-30] MEDS: *HR* Heparin 5,000 UNIT/ML VIAL SQ SCH ×2 (12:23→21:12)
[2019-11-30 13:16] LABS: Bilirubin,Urine Negative (Negative); Blood,Urine Small (Negative); Clarity,Urine Clear (Clear); Color,Urine Yellow (Yellow); Glucose,Urine (UA) Normal (Normal); Hyaline Casts,Urine Few per lpf (None Seen); Ketones,Urine Negative (Negative); Leukocyte Esterase,Urine Negative (Negative); Mucus,Urine Few per lpf (None-Few); Nitrite,Urine Negative (Negative); PH,Urine 7.5 pH Units (5.0-8.0); Protein,Urine Trace mg/dL (Neg-Trace); RBC,Urine 15-30 per hpf (0-3); Specific Gravity,Urine 1.018 (1.010-1.025); Squamous Epithelial Cell,Urine Few per hpf (None-Few); Urobilinogen,Urine Normal (Normal); WBC,Urine 0-3 per hpf (0-3)
[2019-11-30 13:25] LABS: Amphetamine Screen,Urine Negative ng/mL (Cutoff=1000); Barbiturate Screen,Urine Negative ng/mL (Cutoff=200); Benzodiazepines Screen,Urine Negative ng/mL (Cutoff=200); Cannabinoid Screen,Urine Negative ng/mL (Cutoff = 50); Cocaine Screen,Urine Negative ng/mL (Cutoff= 300); Opiate Screen,Urine Positive ng/mL (Cutoff=300); Phencyclidine Screen,Urine Negative ng/mL (Cutoff=25)
[2019-11-30] MEDS ORDERED: Perflutren Lipid Microsphere 1.3 ML in 0.9 % Sodium Chloride 8.7 ML IVP PRN (20:18)
[2019-11-30] MEDS: Furosemide 20 MG/2 ML VIAL IVP SCH (21:13)
[2019-12-01] MEDS: Ipratropium/Albuterol Neb 3 ML IH SCH ×7 (00:18→23:52)
[2019-12-01] MEDS: MethylPREDNISolone 40 MG/ML VIAL IVP SCH ×3 (00:29→16:25)
[2019-12-01] MEDS: Insulin LISPRO 300 UNITS/3 ML VIAL SQ SCH ×4 (02:08→18:08)
[2019-12-01 08:59] LABS: Basophils % 0.2 %; Hematocrit 35.2 % (37.5-50.1); Hemoglobin 10.3 g/dL (12.9-16.9); Immature Granulocytes % 1.4 % (0-4); Lymphocytes # 1.4 K/mcL (0.6-4.6); Lymphocytes % 12.8 %; Mean Corpuscular HGB Conc 29.3 g/dL (31.6-35.5); Mean Corpuscular Hemoglobin 25.1 pg (28.0-33.3); Mean Platelet Volume 10.7 fL (9.4-12.4); Monocytes # 0.5 K/mcL (0.0-1.3); Neutrophils # 8.5 K/mcL (1.6-8.9); Platelet Count 253 K/mcL (140-400); Red Cell Distribution Width 14.7 % (11.5-14.5); Segmented Neutrophils % 80.6 %; White Blood Count 10.5 K/mcL (4.3-11.1)
[2019-12-01 09:00] LABS: Mean Corpuscular Volume 85.9 fL (83.0-100.0)
[2019-12-01 09:34] LABS: BUN/Creatinine Ratio 33 (6-26); Blood Urea Nitrogen 14 mg/dL (6-20); Calcium 9.6 mg/dL (8.6-10.3); Carbon Dioxide > 45 mEq/L (23-29); Chloride 88 mEq/L (98-107); Glucose 161 mg/dL (70-105); Magnesium 1.6 mg/dL (1.6-2.6); Osmolality,Calculated 294 (280-300); Phosphorous 3.3 mg/dL (2.7-4.5); Sodium 140 mEq/L (136-145); eGFR For African Americans > 60 (> 60); eGFR For Non-African Americans > 60 (> 60)
[2019-12-01] MEDS: Furosemide 20 MG/2 ML VIAL IVP SCH ×2 (11:15→21:53)
[2019-12-01] MEDS: *HR* Heparin 5,000 UNIT/ML VIAL SQ SCH ×3 (11:15→21:53)
[2019-12-01] MEDS: levoFLOXacin 750 MG/150 ML 750 MG/150 ML BAG IVPB SCH (11:16)
[2019-12-02] MEDS: Insulin LISPRO 300 UNITS/3 ML VIAL SQ SCH ×3 (00:17→11:53)
[2019-12-02] MEDS: MethylPREDNISolone 40 MG/ML VIAL IVP SCH ×2 (00:18→09:42)
[2019-12-02 02:50] LABS: Hematocrit 37.7 % (37.5-50.1); Hemoglobin 11.2 g/dL (12.9-16.9); Mean Corpuscular HGB Conc 29.7 g/dL (31.6-35.5); Mean Corpuscular Hemoglobin 25.2 pg (28.0-33.3); Mean Corpuscular Volume 84.7 fL (83.0-100.0); Mean Platelet Volume 10.4 fL (9.4-12.4); Platelet Count 280 K/mcL (140-400); Red Blood Count 4.45 M/mcL (4.19-5.50); Red Cell Distribution Width 14.9 % (11.5-14.5); White Blood Count 11.1 K/mcL (4.3-11.1)
[2019-12-02 03:11] LABS: BUN/Creatinine Ratio 27 (6-26); Blood Urea Nitrogen 17 mg/dL (6-20); Calcium 9.9 mg/dL (8.6-10.3); Carbon Dioxide 44 mEq/L (23-29); Chloride 87 mEq/L (98-107); Glucose 171 mg/dL (70-105); Osmolality,Calculated 290 (280-300); Sodium 137 mEq/L (136-145); eGFR For African Americans > 60 (> 60); eGFR For Non-African Americans > 60 (> 60)
[2019-12-02] MEDS: Ipratropium/Albuterol Neb 3 ML IH SCH ×3 (04:16→11:54)
[2019-12-02] MEDS: *HR* Heparin 5,000 UNIT/ML VIAL SQ SCH ×2 (05:07→11:57)
[2019-12-02] MEDS: Furosemide 20 MG/2 ML VIAL IVP SCH (09:42)
[2019-12-02] MEDS: levoFLOXacin 750 MG/150 ML 750 MG/150 ML BAG IVPB SCH (09:42)
[2019-12-02 10:21] VITALS: BP 169/83
== END 2019-12-02 13:22 | disposition home or self-care (01) | DRG 189 ==
LOC: EMEROOARM 20:31 → CDU 20:31 → 3NENU 12-01 20:02
PROVIDERS: ADMIT Family Medicine; ATTEND Family Medicine

== ENCOUNTER 2020-02-16 02:53 | Inpatient (IN) ==
[2020-02-16 03:05] LABS: ABG Base Excess 15 mEq/L (-2 to 3); ABG HCO3 47 mEq/L (21-27); ABG Oxygen Saturation 77 % (95-98); ABG PCO2 108 mmHg (35-45); ABG PH 7.25 pH Units (7.32-7.45); ABG PO2 53 mmHg (85-104); ABG TCO2 > 50 mEq/L (20-26)
[2020-02-16 03:17] LABS: Basophils % 0.2 %; Mean Platelet Volume 9.7 fL (9.4-12.4)
[2020-02-16 03:19] LABS: Eosinophils # 0.2 K/mcL (0.0-0.6); Eosinophils % 1.6 %; Hematocrit 38.6 % (37.5-50.1); Hemoglobin 10.7 g/dL (12.9-16.9); Immature Granulocytes % 0.6 % (0-4); Lymphocytes # 1.6 K/mcL (0.6-4.6); Lymphocytes % 11.7 %; Mean Corpuscular HGB Conc 27.7 g/dL (31.6-35.5); Mean Corpuscular Hemoglobin 24.8 pg (28.0-33.3); Mean Corpuscular Volume 89.4 fL (83.0-100.0); Monocytes # 0.6 K/mcL (0.0-1.3); Monocytes % 4.5 %; Neutrophils # 11.4 K/mcL (1.6-8.9); Platelet Count 238 K/mcL (140-400); Red Blood Count 4.32 M/mcL (4.19-5.50); Segmented Neutrophils % 81.4 %
[2020-02-16 03:50] LABS: Alanine Aminotransferase 49 Units/L (7-52); Albumin 4.1 g/dL (3.5-5.7); Albumin/Globulin Ratio 1.1 (1.1-2.2); Alkaline Phosphatase 62 Units/L (34-104); Aspartate Amino Transferase 56 Units/L (13-39); BUN/Creatinine Ratio 17 (6-26); Bilirubin,Indirect 0.3 mg/dL (0.0-1.0); Bilirubin,Total 0.3 mg/dL (0.3-1.0); Blood Urea Nitrogen 11 mg/dL (6-20); Calcium 9.3 mg/dL (8.6-10.3); Carbon Dioxide 43 mEq/L (23-29); Chloride 90 mEq/L (98-107); Globulin 3.7 g/dL (2.4-3.5); Glucose 193 mg/dL (70-105); Lipase 9 Units/L (11-82); Osmolality,Calculated 295 (280-300); Potassium 4.3 mEq/L (3.5-5.1); Sodium 140 mEq/L (136-145); Total Protein 7.8 g/dL (6.4-8.9); Troponin I < 0.03 ng/mL (< 0.04); eGFR For African Americans > 60 (> 60); eGFR For Non-African Americans > 60 (> 60)
[2020-02-16] MEDS ORDERED: Azithromycin 500 MG in 0.9 % Sodium Chloride 250 ML IVPB ONE (03:53)
[2020-02-16] MEDS ORDERED: Piperacillin/Tazobactam 3.375 GM in 0.9 % Sodium Chloride Mini Bag 100 ML IVPB ONE (03:53)
[2020-02-16 03:58] LABS: Platelet Estimate Normal (Normal)
[2020-02-16] MEDS ORDERED: Vancomycin 2,000 MG/520 ML IV.SOLN IVPB ONE (04:00)
[2020-02-16 04:23] LABS: Bilirubin,Urine Negative (Negative); Blood,Urine Negative (Negative); Clarity,Urine Clear (Clear); Color,Urine Light-Yellow (Yellow); Glucose,Urine (UA) Normal (Normal); Ketones,Urine Negative (Negative); Leukocyte Esterase,Urine Negative (Negative); Nitrite,Urine Negative (Negative); PH,Urine 5.5 pH Units (5.0-8.0); Protein,Urine Trace mg/dL (Neg-Trace); Specific Gravity,Urine 1.016 (1.010-1.025); Urobilinogen,Urine Normal (Normal)
[2020-02-16 04:47] LABS: ABG Base Excess 19 mEq/L (-2 to 3); ABG HCO3 52 mEq/L (21-27); ABG Oxygen Saturation 97 % (95-98); ABG PCO2 117 mmHg (35-45); ABG PH 7.26 pH Units (7.32-7.45); ABG PO2 115 mmHg (85-104); ABG TCO2 > 50 mEq/L (20-26); Blood Gas Modality AVAPS; Blood Gas Pressure Support 15 cm H2O; Blood Gas VT 550 cc
[2020-02-16] MEDS: FentaNYL (PF) 1,000 MCG/100 ML IV.SOLN IVC SCH ×3 (05:16→18:20)
[2020-02-16] MEDS ORDERED: 0.9 % Sodium Chloride 1,000 ML ONE ×2 (05:42→06:30)
[2020-02-16] MEDS ORDERED: 0.9 % Sodium Chloride 1,000 ML IVC ONE ×2 (05:44→06:22)
[2020-02-16 12:00] LABS: ABG Base Excess 19 mEq/L (-2 to 3); ABG HCO3 50 mEq/L (21-27); ABG Oxygen Saturation 100 % (95-98); ABG PCO2 98 mmHg (35-45); ABG PH 7.32 pH Units (7.32-7.45); ABG PO2 300 mmHg (85-104); ABG TCO2 > 50 mEq/L (20-26); Blood Gas Modality ASSIST CONTROL; Blood Gas VT 500 cc
[2020-02-16] MEDS ORDERED: *HR* Etomidate 20 MG/10 ML AMPUL IVP ONE (13:46)
[2020-02-16] MEDS ORDERED: *HR* Propofol 200 MG/20 ML VIAL IVP ONE (13:46)
[2020-02-16] MEDS ORDERED: *HR* Succinylcholine 200 MG/10 ML VIAL IVP ONE (13:46)
[2020-02-16] MEDS ORDERED: Artificial Tears SOLN 15 ML BOTTLE BOTH EYES PRN (13:52)
[2020-02-16 14:28] LABS: Adenovirus Not Detected (Not Detect); Coronavirus 229E Not Detected (Not Detect); Coronavirus HKU1 Not Detected (Not Detect); Coronavirus NL63 Not Detected (Not Detect)
[2020-02-16 14:29] LABS: Bordetella Pertussis Not Detected (Not Detect); Chlamydophila pneumoniae Not Detected (Not Detect); Coronavirus OC43 Not Detected (Not Detect); Human Metapneumovirus Not Detected (Not Detect); Human Rhinovirus/Enterovirus Not Detected (Not Detect); Influenza A Subtype 2009 H1 Not Detected (Not Detect); Influenza B Not Detected (Not Detect); Mycoplasma pneumoniae Not Detected (Not Detect); Parainfluenza Virus 1 Not Detected (Not Detect); Parainfluenza Virus 2 Not Detected (Not Detect); Parainfluenza Virus 3 Not Detected (Not Detect); Parainfluenza Virus 4 Not Detected (Not Detect); Respiratory Syncytial Virus Not Detected (Not Detect); SARS-CoV-2 Not Detected (Not Detect)
[2020-02-16] MEDS: *HR* Heparin 5,000 UNIT/ML VIAL SQ SCH ×2 (15:25→22:02)
[2020-02-16] MEDS: Azithromycin 500 MG in 0.9 % Sodium Chloride 250 ML IVPB SCH (15:41)
[2020-02-16] MEDS: Cefepime HCl 2,000 MG in Water for inj. (sterile) 20 ML IVP SCH ×2 (16:47→23:16)
[2020-02-16] MEDS: Artificial Tears SOLN 15 ML BOTTLE BOTH EYES SCH ×3 (17:41→23:14)
[2020-02-16] MEDS: Chlorhexidine Rinse 15 ML MOUTHWASH MM SCH (19:39)
[2020-02-17] MEDS: FentaNYL (PF) 1,000 MCG/100 ML IV.SOLN IVC SCH ×2 (00:30→06:54)
[2020-02-17] MEDS: Artificial Tears SOLN 15 ML BOTTLE BOTH EYES SCH ×3 (03:48→11:45)
[2020-02-17 03:53] LABS: Basophils % 0.2 %
[2020-02-17 03:55] LABS: Eosinophils # 0.1 K/mcL (0.0-0.6); Eosinophils % 1.2 %; Hematocrit 31.9 % (37.5-50.1); Hemoglobin 9.3 g/dL (12.9-16.9); Immature Granulocytes % 0.3 % (0-4); Lymphocytes # 1.8 K/mcL (0.6-4.6); Lymphocytes % 18.6 %; Mean Corpuscular HGB Conc 29.2 g/dL (31.6-35.5); Mean Corpuscular Hemoglobin 25.2 pg (28.0-33.3); Mean Corpuscular Volume 86.4 fL (83.0-100.0); Mean Platelet Volume 9.8 fL (9.4-12.4); Monocytes # 0.9 K/mcL (0.0-1.3); Monocytes % 8.7 %; Platelet Count 184 K/mcL (140-400); Red Blood Count 3.69 M/mcL (4.19-5.50); White Blood Count 9.9 K/mcL (4.3-11.1)
[2020-02-17 04:02] LABS: INR 1.2; Prothrombin Time 13.6 Seconds (9.4-12.1)
[2020-02-17 04:20] LABS: Alanine Aminotransferase 29 Units/L (7-52); Albumin 3.3 g/dL (3.5-5.7); Albumin/Globulin Ratio 1.1 (1.1-2.2); Alkaline Phosphatase 47 Units/L (34-104); Aspartate Amino Transferase 22 Units/L (13-39); BUN/Creatinine Ratio 23 (6-26); Bilirubin,Total 0.3 mg/dL (0.3-1.0); Blood Urea Nitrogen 11 mg/dL (6-20); Calcium 8.4 mg/dL (8.6-10.3); Carbon Dioxide 44 mEq/L (23-29); Chloride 93 mEq/L (98-107); Glucose 123 mg/dL (70-105); Osmolality,Calculated 291 (280-300); Potassium 3.4 mEq/L (3.5-5.1); Sodium 140 mEq/L (136-145); Total Protein 6.3 g/dL (6.4-8.9); eGFR For African Americans > 60 (> 60); eGFR For Non-African Americans > 60 (> 60)
[2020-02-17] MEDS: *HR* Heparin 5,000 UNIT/ML VIAL SQ SCH ×3 (05:27→21:55)
[2020-02-17 05:35] LABS: ABG Base Excess 18 mEq/L (-2 to 3); ABG HCO3 47 mEq/L (21-27); ABG Oxygen Saturation 91 % (95-98); ABG PCO2 86 mmHg (35-45); ABG PH 7.35 pH Units (7.32-7.45); ABG PO2 70 mmHg (85-104); ABG TCO2 50 mEq/L (20-26); Blood Gas Modality ASSIST CONTROL; Blood Gas VT 500 cc
[2020-02-17] MEDS ORDERED: Potassium Chloride 40 MEQ/200 ML BAG IVPB PRN (06:12)
[2020-02-17] MEDS ORDERED: Furosemide 40 MG/4 ML VIAL IVP ONE (07:16)
[2020-02-17 07:21] LABS: BUN/Creatinine Ratio 20 (6-26); Blood Urea Nitrogen 11 mg/dL (6-20); Calcium 8.9 mg/dL (8.6-10.3); Carbon Dioxide 44 mEq/L (23-29); Chloride 92 mEq/L (98-107); Glucose 132 mg/dL (70-105); Magnesium 1.9 mg/dL (1.6-2.6); Osmolality,Calculated 289 (280-300); Phosphorous 3.1 mg/dL (2.7-4.5); Potassium 3.5 mEq/L (3.5-5.1); Sodium 139 mEq/L (136-145); eGFR For African Americans > 60 (> 60); eGFR For Non-African Americans > 60 (> 60)
[2020-02-17] MEDS: Cefepime HCl 2,000 MG in Water for inj. (sterile) 20 ML IVP SCH ×3 (08:34→23:12)
[2020-02-17] MEDS: Chlorhexidine Rinse 15 ML MOUTHWASH MM SCH ×2 (08:34→19:51)
[2020-02-17 09:25] LABS: Basophils % 0.2 %; Eosinophils # 0.1 K/mcL (0.0-0.6); Eosinophils % 0.8 %; Hematocrit 36.6 % (37.5-50.1); Hemoglobin 10.5 g/dL (12.9-16.9); Immature Granulocytes % 0.4 % (0-4); Lymphocytes # 1.3 K/mcL (0.6-4.6); Lymphocytes % 11.7 %; Mean Corpuscular HGB Conc 28.7 g/dL (31.6-35.5); Mean Corpuscular Hemoglobin 24.4 pg (28.0-33.3); Mean Corpuscular Volume 84.9 fL (83.0-100.0); Mean Platelet Volume 9.6 fL (9.4-12.4); Monocytes # 0.9 K/mcL (0.0-1.3); Monocytes % 7.6 %; Neutrophils # 8.9 K/mcL (1.6-8.9); Platelet Count 201 K/mcL (140-400); Red Blood Count 4.31 M/mcL (4.19-5.50); Red Cell Distribution Width 14.9 % (11.5-14.5); Segmented Neutrophils % 79.3 %; White Blood Count 11.2 K/mcL (4.3-11.1)
[2020-02-17 10:16] LABS: Platelet Estimate Slight Decrease (Normal); Poikilocytosis 1+ (Not Present); Stomatocytes 2+ (Not Present)
[2020-02-17 10:17] LABS: Anisocytosis 1+ (Not Present); Macrocytosis Present (Not Present); Microcytosis Present (Not Present)
[2020-02-17] MEDS: Azithromycin 500 MG in 0.9 % Sodium Chloride 250 ML IVPB SCH (14:36)
[2020-02-17] MEDS ORDERED: *HR* Dextrose 50 % in Water (Vial) 50 ML VIAL IVP PRN (14:48)
[2020-02-17] MEDS ORDERED: Dextrose Gel 15 GM/37.5 ML TUBE PO PRN ×2 (14:48)
[2020-02-17] MEDS ORDERED: D5% in Water 1,000 ML IVC PRN (14:48)
[2020-02-17] MEDS ORDERED: *HR* HYDROcodone/Acet 10/325 mg TABLET PO PRN (14:50)
[2020-02-17] MEDS: Insulin LISPRO 300 UNITS/3 ML VIAL SUBQ SCH (15:49)
[2020-02-17] MEDS: Gabapentin 300 MG CAPSULE PO SCH ×2 (15:49→19:51)
[2020-02-17] MEDS ORDERED: Chloraseptic Spray 177 ML BOTTLE MM PRN (17:20)
[2020-02-17 20:24] LABS: Bilirubin,Urine Negative (Negative); Blood,Urine Small (Negative); Clarity,Urine Clear (Clear); Color,Urine Light-Yellow (Yellow); Glucose,Urine (UA) Normal (Normal); Ketones,Urine Negative (Negative); Leukocyte Esterase,Urine Trace (Negative); Mucus,Urine Few per lpf (None-Few); Nitrite,Urine Negative (Negative); Protein,Urine Trace mg/dL (Neg-Trace); RBC,Urine 30-50 per hpf (0-3); Specific Gravity,Urine 1.019 (1.010-1.025); Urobilinogen,Urine Normal (Normal)
[2020-02-17] MEDS ORDERED: Insulin LISPRO 300 UNITS/3 ML VIAL SUBQ SCH (21:00)
[2020-02-18 03:51] LABS: Basophils % 0.3 %; Immature Granulocytes % 0.3 % (0-4); Mean Corpuscular HGB Conc 28.6 g/dL (31.6-35.5); Platelet Count 195 K/mcL (140-400)
[2020-02-18 03:52] LABS: Eosinophils # 0.1 K/mcL (0.0-0.6); Eosinophils % 1.1 %; Hematocrit 34.6 % (37.5-50.1); Hemoglobin 9.9 g/dL (12.9-16.9); Lymphocytes # 1.9 K/mcL (0.6-4.6); Lymphocytes % 17.4 %; Mean Corpuscular Hemoglobin 24.8 pg (28.0-33.3); Mean Corpuscular Volume 86.5 fL (83.0-100.0); Mean Platelet Volume 9.6 fL (9.4-12.4); Monocytes # 0.9 K/mcL (0.0-1.3); Neutrophils # 7.9 K/mcL (1.6-8.9); Red Cell Distribution Width 14.9 % (11.5-14.5); Segmented Neutrophils % 72.9 %; White Blood Count 10.8 K/mcL (4.3-11.1)
[2020-02-18 04:17] LABS: BUN/Creatinine Ratio 22 (6-26); Blood Urea Nitrogen 12 mg/dL (6-20); Calcium 8.9 mg/dL (8.6-10.3); Carbon Dioxide > 45 mEq/L (23-29); Chloride 91 mEq/L (98-107); Glucose 136 mg/dL (70-105); Osmolality,Calculated 292 (280-300); Platelet Estimate Normal (Normal); Potassium 3.8 mEq/L (3.5-5.1); Sodium 140 mEq/L (136-145); eGFR For African Americans > 60 (> 60); eGFR For Non-African Americans > 60 (> 60)
[2020-02-18 04:18] LABS: Anisocytosis 1+ (Not Present)
[2020-02-18] MEDS: *HR* Heparin 5,000 UNIT/ML VIAL SQ SCH ×3 (06:05→23:04)
[2020-02-18] MEDS: Insulin LISPRO 300 UNITS/3 ML VIAL SUBQ SCH ×3 (07:49→16:10)
[2020-02-18] MEDS: Cefepime HCl 2,000 MG in Water for inj. (sterile) 20 ML IVP SCH ×3 (07:49→23:05)
[2020-02-18] MEDS: Gabapentin 300 MG CAPSULE PO SCH ×3 (07:50→19:36)
[2020-02-18] MEDS: Chlorhexidine Rinse 15 ML MOUTHWASH MM SCH (07:51)
[2020-02-18] MEDS ORDERED: Furosemide 40 MG TABLET PO SCH (09:00)
[2020-02-18] MEDS ORDERED: *HR* Dextrose 50 % in Water (Vial) 50 ML VIAL IVP PRN (10:20)
[2020-02-18] MEDS ORDERED: Chloraseptic Spray 177 ML BOTTLE MM PRN (10:20)
[2020-02-18] MEDS ORDERED: D5% in Water 1,000 ML IVC PRN (10:20)
[2020-02-18] MEDS ORDERED: Dextrose Gel 15 GM/37.5 ML TUBE PO PRN ×2 (10:20)
[2020-02-18] MEDS ORDERED: Potassium Chloride 40 MEQ/200 ML BAG IVPB PRN (10:20)
[2020-02-18] MEDS ORDERED: Azithromycin 500 MG in 0.9 % Sodium Chloride 250 ML IVPB SCH (14:00)
[2020-02-18] MEDS: *HR* HYDROcodone/Acet 10/325 mg TABLET PO PRN (19:41)
[2020-02-18] MEDS ORDERED: Insulin LISPRO 300 UNITS/3 ML VIAL SUBQ SCH (21:00)
[2020-02-19] MEDS: *HR* HYDROcodone/Acet 10/325 mg TABLET PO PRN (03:38)
[2020-02-19 05:07] VITALS: BP 131/68
[2020-02-19] MEDS: *HR* Heparin 5,000 UNIT/ML VIAL SQ SCH (05:57)
[2020-02-19] MEDS: Gabapentin 300 MG CAPSULE PO SCH (07:43)
[2020-02-19] MEDS: Insulin LISPRO 300 UNITS/3 ML VIAL SUBQ SCH ×2 (07:44→11:23)
[2020-02-19] MEDS: Cefepime HCl 2,000 MG in Water for inj. (sterile) 20 ML IVP SCH (07:44)
[2020-02-19] MEDS ORDERED: Furosemide 40 MG TABLET PO SCH (09:00)
[2020-02-19 10:52] LABS: Basophils % 0.3 %; Eosinophils # 0.3 K/mcL (0.0-0.6); Hematocrit 35.5 % (37.5-50.1); Hemoglobin 10.4 g/dL (12.9-16.9); Immature Granulocytes % 0.4 % (0-4); Lymphocytes # 1.6 K/mcL (0.6-4.6); Lymphocytes % 16.6 %; Mean Corpuscular HGB Conc 29.3 g/dL (31.6-35.5); Mean Platelet Volume 9.6 fL (9.4-12.4); Monocytes # 0.8 K/mcL (0.0-1.3); Monocytes % 8.4 %; Neutrophils # 6.9 K/mcL (1.6-8.9); Platelet Count 199 K/mcL (140-400); Red Blood Count 4.33 M/mcL (4.19-5.50); Red Cell Distribution Width 14.6 % (11.5-14.5); Segmented Neutrophils % 71.3 %; White Blood Count 9.7 K/mcL (4.3-11.1)
[2020-02-19 11:26] LABS: BUN/Creatinine Ratio 17 (6-26); Blood Urea Nitrogen 11 mg/dL (6-20); Calcium 9.7 mg/dL (8.6-10.3); Carbon Dioxide > 45 mEq/L (23-29); Chloride 86 mEq/L (98-107); Glucose 173 mg/dL (70-105); Osmolality,Calculated 290 (280-300); Sodium 138 mEq/L (136-145); eGFR For African Americans > 60 (> 60); eGFR For Non-African Americans > 60 (> 60)
== END 2020-02-19 13:47 | disposition home or self-care (01) | DRG 208 ==
LOC: EMEROOARM 02:53 → ICNU 09:26 → SUATTDRO 09:26 → ICNU 10:18
PROVIDERS: ADMIT Family Medicine; ATTEND Internal Medicine

== ENCOUNTER 2020-06-26 21:37 | Inpatient (IN) ==
[2020-06-26] MEDS ORDERED: methylPREDNISolone 125 MG/2 ML VIAL IVP ONE (22:13)
[2020-06-26 22:27] LABS: ABG Base Excess 20 mEq/L (-2 to 3); ABG HCO3 53 mEq/L (21-27); ABG Oxygen Saturation 91 % (95-98); ABG PCO2 125 mmHg (35-45); ABG PH 7.24 pH Units (7.32-7.45); ABG PO2 78 mmHg (85-104); ABG TCO2 > 50 mEq/L (20-26)
[2020-06-26 22:31] LABS: Hemoglobin 10.4 g/dL (12.9-16.9)
[2020-06-26 22:32] LABS: Basophils % 0.3 %; Eosinophils # 0.2 K/mcL (0.0-0.6); Eosinophils % 2.5 %; Hematocrit 37.6 % (37.5-50.1); Immature Granulocytes % 2.5 % (0-4); Lymphocytes # 1.4 K/mcL (0.6-4.6); Lymphocytes % 14.4 %; Mean Corpuscular HGB Conc 27.7 g/dL (31.6-35.5); Mean Corpuscular Hemoglobin 24.6 pg (28.0-33.3); Mean Corpuscular Volume 89.1 fL (83.0-100.0); Mean Platelet Volume 10.4 fL (9.4-12.4); Monocytes # 0.6 K/mcL (0.0-1.3); Monocytes % 5.9 %; Platelet Count 203 K/mcL (140-400); Red Blood Count 4.22 M/mcL (4.19-5.50); Red Cell Distribution Width 15.2 % (11.5-14.5); Segmented Neutrophils % 74.4 %; White Blood Count 9.5 K/mcL (4.3-11.1)
[2020-06-26 22:35] LABS: Neutrophils # 7.1 K/mcL (1.6-8.9)
[2020-06-26 22:56] LABS: Alanine Aminotransferase 22 Units/L (7-52); Albumin 3.5 g/dL (3.5-5.7); Albumin/Globulin Ratio 1.1 (1.1-2.2); Alkaline Phosphatase 60 Units/L (34-104); Aspartate Amino Transferase 11 Units/L (13-39); BUN/Creatinine Ratio 10 (6-26); Bilirubin,Direct 0.1 mg/dL (0.0-0.2); Bilirubin,Indirect 0.1 mg/dL (0.0-1.0); Bilirubin,Total 0.2 mg/dL (0.3-1.0); Blood Urea Nitrogen 6 mg/dL (6-20); Calcium 9.1 mg/dL (8.6-10.3); Carbon Dioxide > 45 mEq/L (23-29); Chloride 89 mEq/L (98-107); Globulin 3.1 g/dL (2.4-3.5); Glucose 190 mg/dL (70-105); Osmolality,Calculated 291 (280-300); Potassium 4.5 mEq/L (3.5-5.1); Sodium 139 mEq/L (136-145); Total Protein 6.6 g/dL (6.4-8.9); Troponin I < 0.03 ng/mL (< 0.04); eGFR For African Americans > 60 (> 60); eGFR For Non-African Americans > 60 (> 60)
[2020-06-26 22:59] LABS: Hypochromasia Present (Not Present); Platelet Estimate Normal (Normal)
[2020-06-26] MEDS ORDERED: Furosemide 40 MG/4 ML VIAL IVP ONE (23:40)
[2020-06-26] MEDS ORDERED: Azithromycin 500 MG in 0.9 % Sodium Chloride 250 ML IVPB SCH (23:45)
[2020-06-26] MEDS ORDERED: cefTRIAXone 1,000 MG in Water for inj. (sterile) 10 ML IVP SCH (23:45)
[2020-06-27] MEDS ORDERED: Ondansetron 4 MG/2 ML VIAL IVP ONE (00:25)
[2020-06-27 00:51] LABS: ABG Base Excess 18 mEq/L (-2 to 3); ABG HCO3 50 mEq/L (21-27); ABG Oxygen Saturation 92 % (95-98); ABG PCO2 101 mmHg (35-45); ABG PO2 76 mmHg (85-104); ABG TCO2 > 50 mEq/L (20-26); Blood Gas Modality BiLevel; Blood Gas VT 550 cc
[2020-06-27] MEDS ORDERED: Naloxone 0.4 MG/ML INJ IVP PRN ×2 (01:29→16:43)
[2020-06-27] MEDS ORDERED: *HR* Metoprolol 5 MG/5 ML VIAL IVP ONE ×2 (02:13→02:19)
[2020-06-27] MEDS ORDERED: Ipratropium/Albuterol Neb 3 ML IH PRN ×2 (03:22→16:43)
[2020-06-27 03:49] LABS: ABG Base Excess 22 mEq/L (-2 to 3); ABG HCO3 54 mEq/L (21-27); ABG Oxygen Saturation 87 % (95-98); ABG PCO2 111 mmHg (35-45); ABG PO2 64 mmHg (85-104); ABG TCO2 > 50 mEq/L (20-26); Blood Gas Modality AVAPS; Blood Gas VT 550 cc
[2020-06-27] MEDS: Ipratropium/Albuterol Neb 3 ML IH SCH ×6 (03:51→23:15)
[2020-06-27 05:21] LABS: Basophils % 0.2 %; Eosinophils % 0.1 %; Hematocrit 36.8 % (37.5-50.1); Hemoglobin 10.6 g/dL (12.9-16.9); Lymphocytes # 0.8 K/mcL (0.6-4.6); Lymphocytes % 7.6 %; Mean Corpuscular HGB Conc 28.8 g/dL (31.6-35.5); Mean Corpuscular Hemoglobin 25.1 pg (28.0-33.3); Mean Platelet Volume 10.6 fL (9.4-12.4); Monocytes # 0.1 K/mcL (0.0-1.3); Monocytes % 0.9 %; Platelet Count 197 K/mcL (140-400); Red Blood Count 4.23 M/mcL (4.19-5.50); Red Cell Distribution Width 14.8 % (11.5-14.5); Segmented Neutrophils % 89.2 %; White Blood Count 10.1 K/mcL (4.3-11.1)
[2020-06-27 05:24] LABS: VBG Ionized Calcium 1.13 mmol/L (1.15-1.35)
[2020-06-27 05:43] LABS: Hypochromasia Present (Not Present); Platelet Estimate Normal (Normal)
[2020-06-27 05:50] LABS: BUN/Creatinine Ratio 13 (6-26); Blood Urea Nitrogen 7 mg/dL (6-20); Calcium 9.1 mg/dL (8.6-10.3); Carbon Dioxide > 45 mEq/L (23-29); Chloride 87 mEq/L (98-107); Glucose 252 mg/dL (70-105); Magnesium 1.3 mg/dL (1.6-2.6); Osmolality,Calculated 295 (280-300); Phosphorous 2.2 mg/dL (2.7-4.5); Potassium 4.7 mEq/L (3.5-5.1); Sodium 139 mEq/L (136-145); eGFR For African Americans > 60 (> 60); eGFR For Non-African Americans > 60 (> 60)
[2020-06-27] MEDS ORDERED: Dextrose Gel 15 GM/37.5 ML TUBE PO PRN ×4 (06:00→16:43)
[2020-06-27] MEDS ORDERED: *HR* Dextrose 50 % in Water (Vial) 50 ML VIAL IVP PRN ×2 (06:00→16:43)
[2020-06-27] MEDS ORDERED: Doxycycline 100 MG in 0.9 % Sodium Chloride Mini Bag 100 ML IVPB SCH (06:00)
[2020-06-27] MEDS ORDERED: D5% in Water 1,000 ML IVC PRN ×2 (06:00→16:43)
[2020-06-27] MEDS: Insulin LISPRO 300 UNITS/3 ML VIAL SUBQ SCH ×3 (06:21→17:45)
[2020-06-27] MEDS: methylPREDNISolone 125 MG/2 ML VIAL IVP SCH ×2 (08:29→15:53)
[2020-06-27] MEDS ORDERED: Furosemide 40 MG/4 ML VIAL IVP SCH (09:00)
[2020-06-27] MEDS ORDERED: Ondansetron ODT 4 MG TAB.RAPDIS SL PRN ×2 (11:58→16:43)
[2020-06-27] MEDS: Doxycycline 100 MG in 0.9 % Sodium Chloride Mini Bag 100 ML IVPB SCH (17:44)
[2020-06-27] MEDS: Furosemide 40 MG/4 ML VIAL IVP SCH (19:51)
[2020-06-27] MEDS: cefTRIAXone 1,000 MG in Water for inj. (sterile) 10 ML IVP SCH (23:24)
[2020-06-28] MEDS: Insulin LISPRO 300 UNITS/3 ML VIAL SUBQ SCH ×4 (02:46→17:08)
[2020-06-28] MEDS: Ipratropium/Albuterol Neb 3 ML IH SCH ×6 (03:44→23:30)
[2020-06-28 04:14] LABS: ABG Base Excess 25 mEq/L (-2 to 3); ABG HCO3 54 mEq/L (21-27); ABG Oxygen Saturation 97 % (95-98); ABG PCO2 75 mmHg (35-45); ABG PH 7.46 pH Units (7.32-7.45); ABG PO2 93 mmHg (85-104); ABG TCO2 > 50 mEq/L (20-26); Blood Gas Modality AVAPS
[2020-06-28] MEDS: Doxycycline 100 MG in 0.9 % Sodium Chloride Mini Bag 100 ML IVPB SCH ×2 (05:58→17:07)
[2020-06-28] MEDS: *HR* Enoxaparin 40 MG/0.4 ML SYRINGE SQ SCH (05:59)
[2020-06-28] MEDS: methylPREDNISolone 125 MG/2 ML VIAL IVP SCH ×2 (05:59→17:07)
[2020-06-28] MEDS ORDERED: *HR* Enoxaparin 40 MG/0.4 ML SYRINGE SQ SCH (06:00)
[2020-06-28 07:11] LABS: VBG Ionized Calcium 0.94 mmol/L (1.15-1.35)
[2020-06-28] MEDS: Furosemide 40 MG/4 ML VIAL IVP SCH ×3 (07:56→17:07)
[2020-06-28 08:13] LABS: Basophils % 0.1 %; Immature Granulocytes % 0.8 % (0-4); Lymphocytes # 1.7 K/mcL (0.6-4.6); Lymphocytes % 12.4 %; Mean Corpuscular HGB Conc 29.7 g/dL (31.6-35.5); Mean Corpuscular Hemoglobin 24.5 pg (28.0-33.3); Mean Corpuscular Volume 82.4 fL (83.0-100.0); Monocytes # 0.7 K/mcL (0.0-1.3); Monocytes % 5.1 %; Platelet Count 234 K/mcL (140-400); Red Blood Count 4.49 M/mcL (4.19-5.50); Red Cell Distribution Width 14.9 % (11.5-14.5); Segmented Neutrophils % 81.6 %; White Blood Count 13.4 K/mcL (4.3-11.1)
[2020-06-28 10:20] LABS: Alanine Aminotransferase 15 Units/L (7-52); Albumin 3.6 g/dL (3.5-5.7); Albumin/Globulin Ratio 1.3 (1.1-2.2); Alkaline Phosphatase 42 Units/L (34-104); Aspartate Amino Transferase 9 Units/L (13-39); BUN/Creatinine Ratio 27 (6-26); Bilirubin,Total 0.3 mg/dL (0.3-1.0); Blood Urea Nitrogen 17 mg/dL (6-20); Calcium 9.4 mg/dL (8.6-10.3); Chloride 83 mEq/L (98-107); Globulin 2.8 g/dL (2.4-3.5); Glucose 240 mg/dL (70-105); Magnesium 1.4 mg/dL (1.6-2.6); Osmolality,Calculated 297 (280-300); Phosphorous 2.2 mg/dL (2.7-4.5); Potassium 3.8 mEq/L (3.5-5.1); Sodium 139 mEq/L (136-145); Total Protein 6.4 g/dL (6.4-8.9); eGFR For African Americans > 60 (> 60); eGFR For Non-African Americans > 60 (> 60)
[2020-06-28 10:25] LABS: Carbon Dioxide > 45 mEq/L (23-29)
[2020-06-28] MEDS ORDERED: *HR* LORazepam 2 MG/ML VIAL ONE (11:52)
[2020-06-28] MEDS ORDERED: *HR* LORazepam 2 MG/ML VIAL IVP ONE ×2 (11:52)
[2020-06-28 15:57] LABS: ABG Base Excess > 30 mEq/L (-2 to 3); ABG HCO3 65 mEq/L (21-27); ABG Oxygen Saturation 100 % (95-98); ABG PCO2 77 mmHg (35-45); ABG PH 7.54 pH Units (7.32-7.45); ABG PO2 212 mmHg (85-104); ABG TCO2 > 50 mEq/L (20-26); Blood Gas VT 650 cc
[2020-06-28 18:29] LABS: Bilirubin,Urine Negative (Negative); Blood,Urine Negative (Negative); Clarity,Urine Clear (Clear); Color,Urine Colorless (Yellow); Glucose,Urine (UA) Normal (Normal); Ketones,Urine Negative (Negative); Leukocyte Esterase,Urine Negative (Negative); Nitrite,Urine Negative (Negative); Protein,Urine Negative (Neg-Trace); Specific Gravity,Urine 1.008 (1.010-1.025); Urobilinogen,Urine Normal (Normal)
[2020-06-28] MEDS ORDERED: Acetaminophen IV 500 MG/50 ML BAG IVPB ONE (20:52)
[2020-06-28] MEDS: cefTRIAXone 1,000 MG in Water for inj. (sterile) 10 ML IVP SCH (22:26)
[2020-06-29] MEDS: Insulin LISPRO 300 UNITS/3 ML VIAL SUBQ SCH ×4 (00:18→17:22)
[2020-06-29 02:14] LABS: Basophils % 0.1 %; Hematocrit 33.1 % (37.5-50.1); Hemoglobin 9.9 g/dL (12.9-16.9); Immature Granulocytes % 0.5 % (0-4); Lymphocytes % 8.3 %; Mean Corpuscular HGB Conc 29.9 g/dL (31.6-35.5); Mean Corpuscular Hemoglobin 24.6 pg (28.0-33.3); Mean Corpuscular Volume 82.1 fL (83.0-100.0); Mean Platelet Volume 10.7 fL (9.4-12.4); Monocytes # 0.7 K/mcL (0.0-1.3); Monocytes % 5.8 %; Neutrophils # 10.3 K/mcL (1.6-8.9); Platelet Count 244 K/mcL (140-400); Red Blood Count 4.03 M/mcL (4.19-5.50); Red Cell Distribution Width 15.2 % (11.5-14.5); Segmented Neutrophils % 85.3 %; White Blood Count 12.1 K/mcL (4.3-11.1)
[2020-06-29 02:40] LABS: Alanine Aminotransferase 20 Units/L (7-52); Albumin 3.4 g/dL (3.5-5.7); Albumin/Globulin Ratio 1.2 (1.1-2.2); Alkaline Phosphatase 39 Units/L (34-104); Aspartate Amino Transferase 12 Units/L (13-39); BUN/Creatinine Ratio 36 (6-26); Bilirubin,Total 0.3 mg/dL (0.3-1.0); Blood Urea Nitrogen 26 mg/dL (6-20); Calcium 9.2 mg/dL (8.6-10.3); Carbon Dioxide > 45 mEq/L (23-29); Chloride 83 mEq/L (98-107); Globulin 2.8 g/dL (2.4-3.5); Glucose 213 mg/dL (70-105); Magnesium 1.9 mg/dL (1.6-2.6); Osmolality,Calculated 299 (280-300); Phosphorous 4.9 mg/dL (2.7-4.5); Potassium 3.8 mEq/L (3.5-5.1); Sodium 139 mEq/L (136-145); Total Protein 6.2 g/dL (6.4-8.9); eGFR For African Americans > 60 (> 60); eGFR For Non-African Americans > 60 (> 60)
[2020-06-29 03:20] LABS: ABG Base Excess 27 mEq/L (-2 to 3); ABG HCO3 55 mEq/L (21-27); ABG Oxygen Saturation 98 % (95-98); ABG PCO2 78 mmHg (35-45); ABG PH 7.46 pH Units (7.32-7.45); ABG PO2 101 mmHg (85-104); ABG TCO2 > 50 mEq/L (20-26); Blood Gas VT 550 cc
[2020-06-29] MEDS: Ipratropium/Albuterol Neb 3 ML IH SCH ×5 (03:20→19:35)
[2020-06-29] MEDS: *HR* Enoxaparin 40 MG/0.4 ML SYRINGE SQ SCH ×2 (05:05→17:24)
[2020-06-29] MEDS: methylPREDNISolone 125 MG/2 ML VIAL IVP SCH (05:06)
[2020-06-29] MEDS: Doxycycline 100 MG in 0.9 % Sodium Chloride Mini Bag 100 ML IVPB SCH (05:06)
[2020-06-29] MEDS: Furosemide 40 MG/4 ML VIAL IVP SCH (07:59)
[2020-06-29] MEDS: Furosemide 40 MG TABLET PO SCH (17:21)
[2020-06-29] MEDS: predniSONE 20 MG TABLET PO SCH (17:21)
[2020-06-29] MEDS: Doxycycline 100 MG CAPSULE PO SCH (17:21)
[2020-06-29] MEDS: cefTRIAXone 1,000 MG in Water for inj. (sterile) 10 ML IVP SCH (22:11)
[2020-06-30] MEDS: Ipratropium/Albuterol Neb 3 ML IH SCH ×7 (00:17→23:08)
[2020-06-30 02:13] LABS: BUN/Creatinine Ratio 42 (6-26); Blood Urea Nitrogen 32 mg/dL (6-20); Calcium 9.2 mg/dL (8.6-10.3); Carbon Dioxide > 45 mEq/L (23-29); Chloride 85 mEq/L (98-107); Glucose 263 mg/dL (70-105); Magnesium 1.9 mg/dL (1.6-2.6); Osmolality,Calculated 306 (280-300); Phosphorous 5.1 mg/dL (2.7-4.5); Potassium 3.8 mEq/L (3.5-5.1); Sodium 140 mEq/L (136-145); eGFR For African Americans > 60 (> 60); eGFR For Non-African Americans > 60 (> 60)
[2020-06-30] MEDS: Doxycycline 100 MG CAPSULE PO SCH ×2 (05:38→17:03)
[2020-06-30] MEDS: *HR* Enoxaparin 40 MG/0.4 ML SYRINGE SQ SCH ×2 (05:38→17:05)
[2020-06-30] MEDS: Insulin LISPRO 300 UNITS/3 ML VIAL SUBQ SCH ×3 (10:05→17:00)
[2020-06-30] MEDS: predniSONE 20 MG TABLET PO SCH ×2 (10:07→17:03)
[2020-06-30] MEDS: Furosemide 40 MG TABLET PO SCH ×2 (10:07→17:03)
[2020-06-30] MEDS ORDERED: Insulin LISPRO 300 UNITS/3 ML VIAL SUBQ SCH (21:00)
[2020-06-30] MEDS: cefTRIAXone 1,000 MG in Water for inj. (sterile) 10 ML IVP SCH (23:02)
[2020-07-01 01:44] LABS: Hemoglobin 9.8 g/dL (12.9-16.9); Mean Corpuscular HGB Conc 29.7 g/dL (31.6-35.5); Mean Corpuscular Hemoglobin 24.4 pg (28.0-33.3); Mean Corpuscular Volume 82.3 fL (83.0-100.0); Platelet Count 220 K/mcL (140-400); Red Blood Count 4.01 M/mcL (4.19-5.50); White Blood Count 11.6 K/mcL (4.3-11.1)
[2020-07-01 02:01] LABS: BUN/Creatinine Ratio 41 (6-26); Blood Urea Nitrogen 26 mg/dL (6-20); Calcium 8.9 mg/dL (8.6-10.3); Carbon Dioxide 43 mEq/L (23-29); Chloride 88 mEq/L (98-107); Glucose 222 mg/dL (70-105); Osmolality,Calculated 298 (280-300); Potassium 4.2 mEq/L (3.5-5.1); Sodium 138 mEq/L (136-145); eGFR For African Americans > 60 (> 60); eGFR For Non-African Americans > 60 (> 60)
[2020-07-01] MEDS: Ipratropium/Albuterol Neb 3 ML IH SCH ×3 (03:43→11:38)
[2020-07-01 04:17] LABS: ABG Base Excess 16 mEq/L (-2 to 3); ABG HCO3 43 mEq/L (21-27); ABG Oxygen Saturation 97 % (95-98); ABG PCO2 63 mmHg (35-45); ABG PH 7.45 pH Units (7.32-7.45); ABG PO2 91 mmHg (85-104); ABG TCO2 45 mEq/L (20-26); Blood Gas VT 550 cc
[2020-07-01] MEDS: *HR* Enoxaparin 40 MG/0.4 ML SYRINGE SQ SCH (05:40)
[2020-07-01] MEDS: Doxycycline 100 MG CAPSULE PO SCH (05:40)
[2020-07-01 07:08] VITALS: BP 157/98
== END 2020-07-01 12:45 | disposition home or self-care (01) | DRG 871 ==
LOC: EMEROOARM 21:37 → ICNU 21:37 → SUATTDRO 06-27 00:36 → OBSVTOIN 06-27 00:36 → ICNU 06-27 00:44 → 2NENU 06-27 19:40
PROVIDERS: ADMIT Internal Medicine; ATTEND Internal Medicine